=== PATIENT | female | born 1945 | race Caucasian/White ===

== ENCOUNTER → 2018-01-09 06:47 | Outpatient (CLI) | payer BC, OTHER, SELFPAY ==
[2018-01-09 07:26] LABS: AST(SGOT) 22 U/L (15-37); Alanine Aminotransfer ALT/SGPT 33 U/L (13-56); Albumin, Serum 3.5 g/dL (3.2-5.0); Alkaline Phosphatase 231 U/L (45-117); Bilirubin, Direct 0.11 mg/dL (0.00-0.30); Cholesterol 188 mg/dL (200); Globulin 3.5 g/dL (2.2-4.2); High Density Lipoprotein 47 mg/dL; Triglycerides 138 mg/dL; Very Low Density Lipoprotein 28 mg/dL (5-40)
== END ==
PROVIDERS: Family Provider Family Medicine; PCP Family Medicine; Visit Provider Physician Assistant Medical
DX: E78.5 Hyperlipidemia, unspecified (principal); Z79.899 Other long term (current) drug therapy
CPT/HCPCS: 36415; 80061; 80076

== ENCOUNTER → 2018-01-29 17:00 | Outpatient (CLI) | payer BC, OTHER, SELFPAY ==
--- NOTE | 2018-01-29 15:15 | BI_ITS ---
MAMMOGRAPHY - BILATERAL SCREENING REASON FOR EXAM: Female, 72 years old. Routine annual screening examination. PERTINENT HISTORY: PERSONAL HX @ AGE 71 WITH RT LUMPECTOMY 01/2017 WITH CHEMO AND RADIATION - CENTER LINE MOLE MARKED TECHNIQUE: Digital bilateral breast alejandro (3D mammographic acquisition) in the CC and MLO projections. 2-D mediolateral oblique (MLO) and craniocaudad (CC) views of both breasts were obtained. CAD: Full Field Digital Mammography with Computer Added Detection was performed. COMPARISON: 02/02/2017, 01/16/2017, 02/11/2013 FINDINGS: Breast Composition: There are scattered areas of fibroglandular density. There are no dominant masses or suspicious calcifications. No other significant abnormalities are identified. BI/SCREENING MAMM (CAD), BILAT IMPRESSION: Stable bilateral screening mammogram. Yearly follow-up mammogram recommended. (A) ASSESSMENT CATEGORY: BIRADS Category 2: Benign. A letter regarding these results will be sent to the patient by the facility within 30 days. Approximately 10% of breast cancers are not detected by mammography. A normal mammogram should not delay biopsy of a clinically suspicious abnormality. [id number] Electronically Signed: Chente Parra MD at 14:27 EDT Tel , Service support ,
--- NOTE | 2018-01-29 17:00 | DT_ITS ---
This patient was seen during an EMR downtime January 28, 2018 - February 04, 2018. This patient may have a combination of paper and electronic documentation or all paper documentation. All documentation is viewable within the e-chart portion of [facility] for each patient visit.
== END ==
PROVIDERS: Family Provider Family Medicine; PCP Family Medicine; Visit Provider Internal Medicine Medical Oncology
DX: Z12.31 Encounter for screening mammogram for malignant neoplasm of breast (principal); Z85.3 Personal history of malignant neoplasm of breast
CPT/HCPCS: 77063; 77067

== ENCOUNTER → 2018-11-11 10:29 | Outpatient (CLI) | payer BC, SELFPAY ==
[2018-10-21 11:22] VITALS: BMI 25.4
--- NOTE | 2018-11-11 10:32 | ECHODONC_ITS ---
Reason For Study: CAD/ASHD Procedure This was a 2D Doppler, Color Flow transthoracic echocardiogram. Myocardial strain analysis was performed in this exam to aid in the assessment of cardiac function. The study was technically difficult. Exam performed in department. Left Ventricle Normal LV size. Left ventricular systolic function is normal. The estimated ejection fraction is 67 %. Stage 1 diastolic dysfunction. No regional wall motion abnormalities noted. Right Ventricle Normal RV size. Normal systolic function. Atria Normal left atrium. Normal right atrium. Mitral Valve Normal mitral valve. Tricuspid Valve Normal tricuspid valve. Mild tricuspid valve insufficiency. Aortic Valve Normal aortic valve. Trisinus/trileaflet aortic valve. Pulmonic Valve Normal pulmonic valve. Great Vessels Normal aortic root. The pulmonary artery is normal size. Normal inferior vena cava. Pericardium/Pleural No pericardial effusion. MMode/2D Measurements & Calculations LVIDd: 4.5 cm IVSd: 0.92 cm Ao root diam: 3.0 cm LVIDs: 2.9 cm LVPWd: 1.1 cm RVDd: 2.3 cm FS: 36.0 % LAV(MOD-bp): 42.9 ml LA A4 area: 15.4 cm2 LA dimension(2D): 3.6 cm LAV(MOD-bp) Indexed: 25.7 ml/m2 LAV(MOD-sp2): 41.6 ml LAV(MOD-sp4): 42.1 ml RA A4 area: 9.7 cm2 Doppler Measurements & Calculations MV E max artemio: 76.5 cm/sec Lat Peak E' Artemio: 3.5 cm/sec Med Peak E' Artemio: 5.4 cm/sec MV A max artemio: 109.2 cm/sec E/E' lat: 21.7 E/E' med: 14.1 MV E/A: 0.70 Ao V2 max: 125.9 cm/sec LV V1 max: 90.0 cm/sec PA V2 max: 91.1 cm/sec Ao max P.3 mmHg LV V1 max P.2 mmHg TR max artemio: 219.4 cm/sec TR max P.3 mmHg Interpretation Summary Normal LV size. Left ventricular systolic function is normal. The estimated ejection fraction is 67 %. Stage 1 diastolic dysfunction. Mild tricuspid valve insufficiency. The global longitudinal strain = -18.9 % (normal). Ordering Physician: Miguelito Mueller Referring Physician: Mariluz Mcguire Performed By: Jo Baird RDCS, RVT
== END ==
PROVIDERS: Family Provider Family Medicine; PCP Family Medicine; Referring Provider Internal Medicine Cardiovascular Disease; Visit Provider Internal Medicine Cardiovascular Disease
DX: C50.911 Malignant neoplasm of unspecified site of right female breast (principal); I10 Essential (primary) hypertension; Z95.5 Presence of coronary angioplasty implant and graft; I25.10 Atherosclerotic heart disease of native coronary artery without angina pectoris
CPT/HCPCS: 0399T; 93306

== ENCOUNTER → 2019-01-31 07:36 | Outpatient (CLI) | payer BC, SELFPAY ==
[2018-10-21 11:22] VITALS: BMI 25.4
--- NOTE | 2019-01-31 07:00 | BI_ITS ---
MAMMOGRAPHY - BILATERAL SCREENING REASON FOR EXAM: Female, 73 years old. Routine annual screening examination. PERTINENT HISTORY: Personal history of breast cancer. Prior right lumpectomy with chemotherapy and radiation therapy. TECHNIQUE: Digital bilateral breast venkatesh (3D mammographic acquisition) in the CC and MLO projections. 2-D mediolateral oblique (MLO) and craniocaudad (CC) views of both breasts were obtained. CAD: Full Field Digital Mammography with Computer Added Detection was performed. COMPARISON: Comparison is made with prior examination dated January 29, 2018 and February 02, 2007. FINDINGS: Breast Composition: There are scattered areas of fibroglandular density. There are no dominant masses or suspicious calcifications. Once again, surgical clips are seen in the axillary region of the right breast. Stable postoperative scarring in the axillary region. No other significant abnormalities are identified. There has been no significant change since the prior study. BI/SCREEN MAMM (CAD) W/VENKATESH BILAT IMPRESSION: Stable bilateral screening mammogram. Yearly follow-up mammogram recommended. (A) ASSESSMENT CATEGORY: BIRADS Category 2: Benign. A letter regarding these results will be sent to the patient by the facility within 30 days. Approximately 10% of breast cancers are not detected by mammography. A normal mammogram should not delay biopsy of a clinically suspicious abnormality. [id number] Electronically Signed: Sj Ramachandran, at 8:34 EDT , Service support ,
== END ==
PROVIDERS: Family Provider Family Medicine; PCP Family Medicine; Referring Provider Internal Medicine Medical Oncology; Visit Provider Internal Medicine Medical Oncology
DX: C50.911 Malignant neoplasm of unspecified site of right female breast (principal); Z85.3 Personal history of malignant neoplasm of breast
CPT/HCPCS: 77063; 77067

== ENCOUNTER → 2019-03-28 15:25 | Outpatient (CLI) | payer BC, SELFPAY ==
[2018-10-21 11:22] VITALS: BMI 25.4
[2019-03-28 17:35] LABS: Anion Gap 7 (5-15); BUN 19 mg/dL (7-18); BUN/Creat Ratio 18.1 RATIO (10-20); Calcium,Total 8.7 mg/dL (8.5-10.1); Chloride 107 mmol/L (98-107); Creatinine, Serum 1.05 mg/dL (0.55-1.02); EST Glomerular Filtration Rate 55 mL/min (>60); Est Glom Filt Rate - Afr Amer 66 mL/min (>60); Glucose 93 mg/dL (74-106); Potassium 3.9 mmol/L (3.5-5.1); Sodium Level 140 mmol/L (136-145)
[2019-03-29 14:30] LABS: Hepatitis C Antibody Non-Reactive (Nonreactive); Vitamin D,25 Hydroxy 19.8 ng/mL (29.95-100.01)
== END ==
PROVIDERS: Family Provider Family Medicine; PCP Family Medicine; Referring Provider Family Medicine; Visit Provider Family Medicine
DX: Z00.00 Encounter for general adult medical examination without abnormal findings (principal); E55.9 Vitamin D deficiency, unspecified; I10 Essential (primary) hypertension
CPT/HCPCS: 36415; 80048; 82306; 86803

== ENCOUNTER → 2019-04-10 15:46 | Outpatient (CLI) | payer BC, SELFPAY ==
[2018-10-21 11:22] VITALS: BMI 25.4
--- NOTE | 2019-04-10 15:49 | BD_ITS ---
STUDY: DUAL ENERGY X-RAY ABSORPTIOMETRY / DXA REASON FOR EXAM: Female, 73 years old. The patient is postmenopausal. Loss of height. TECHNIQUE: Bone Mineral Density (BMD) measurements of lumbar spine and bilateral hips were obtained. COMPARISON: Comparison is made with prior examination dated February 11, 2013. FINDINGS: Lumbar Spine (L1-L4): g/cm2 (0.991) / T-score (-1.5) / Z-score (0.2) Findings are suggestive of osteopenia with a moderate fracture risk. Left Femur Total: g/cm2 (0.913) / T-score (-0.7) / Z-score (0.9) Left Femoral Neck: g/cm2 (0.765) / T-score (-2.0) / Z-score (-0.1) Right Femur Total: g/cm2 (0.881) / T-score (-1.0) / Z-score (0.7) Right Femoral Neck: g/cm2 (0.765) / T-score (-2.0) / Z-score (-0.1) The T-Scores on the most recent prior examination were: Lumbar Spine (L1-L4): There has been worsening of bone density since the previous examination. Left Femur Total: which represents a worsening of 8.1%. Right Femur Total: which represents a worsening of 5.9%. BD/Dexa Bone Density Study IMPRESSION: The patient is considered osteopenic as outlined below according to World Bill Organization (WHO) criteria with a moderate fracture risk. There has been worsening of bone density since the previous examination. Reference Information: The T-score is the number of standard deviations above or below the standard which is normal for young adults at their peak bone mineral density. The World Health Organization (WHO) interprets the T-scores as follows: Above -1 Normal bone density Between -1 and -2.5 Osteopenia Equal to / or below -2.5 Osteoporosis As a practical clinical guideline, osteopenia may be graded as follows: Mild -1 through -1.5 Moderate -1.6 through -2.0 Severe -2.1 through -2.4 The Z-score is the number of standard deviations above or below age-matched controls. A Z-score of less than -1.5 would be considered abnormal. References: 1. NIH Osteoporosis and Related Bone Diseases http://www.osteo.org 2. International Society for Clinical Densitometry http://www.iscd.org 3. National Osteoporosis Foundation http://www.nof.org Electronically Signed: Sj Ramachandran, at 10:20 EDT , Service support ,
== END ==
PROVIDERS: Family Provider Family Medicine; PCP Family Medicine; Referring Provider Family Medicine; Visit Provider Family Medicine
DX: N95.9 Unspecified menopausal and perimenopausal disorder (principal)
CPT/HCPCS: 77080

== ENCOUNTER → 2019-07-01 08:18 | Outpatient (CLI) | payer BC, SELFPAY ==
[2018-10-21 11:22] VITALS: BMI 25.4
[2019-04-17 15:17] VITALS: BMI 25.8
[2019-07-01 08:37] VITALS: PULSE 101; PULSE 106; PULSE 107; PULSE 108; PULSE 94; PULSE 95; PULSE 99; O2SAT 94; O2SAT 95; O2SAT 96; O2SAT 97; O2SAT 98
--- NOTE | 2019-07-02 08:45 | PCM.PSN.6M ---
PSN 6 Minute Walk Test - 6 Minute Walk Test 6 Minute Walk Test: 6 Minute Walk Test PSN:6-Minute Walk Test Start: 07/01/19 08:37 Freq: Status: Active Protocol: RESP.6MINW Document 07/01/19 08:37 MITUL (Rec: 07/01/19 08:39 MITUL [id number]) 6 Minute Walk Test Date Performed 07/01/19 Time Performed 08:30 Height 5 ft 1 in Weight: 152 lb Weight in Pounds 152.[address]: Rangel Gates Pre-test Oxygen Delivery Method Room Air Pulse Ox (%) 97 Pulse Rate (60-100 beats/min) 95 Dyspnea Ashley Scale (0-10) 0 Exertion Ashley Scale (6-20) 6 1st minute Oxygen Delivery Method Room Air Pulse Ox (%) 94 Pulse Rate (60-100 beats/min) 94 2nd minute Oxygen Delivery Method Room Air Pulse Ox (%) 94 Pulse Rate (60-100 beats/min) 101 H 3rd minute Oxygen Delivery Method Room Air Pulse Ox (%) 95 Pulse Rate (60-100 beats/min) 106 H 4th minute Oxygen Delivery Method Room Air Pulse Ox (%) 96 Pulse Rate (60-100 beats/min) 107 H 5th minute Oxygen Delivery Method Room Air Pulse Ox (%) 98 Pulse Rate (60-100 beats/min) 108 H 6th minute Oxygen Delivery Method Room Air Pulse Ox (%) 96 Pulse Rate (60-100 beats/min) 107 H Dyspnea Ashley Scale (0-10) 0 Exertion Ashley Scale (6-20) 11 Post-test Oxygen Delivery Method Room Air Pulse Ox (%) 98 Pulse Rate (60-100 beats/min) 99 Full Laps Walked 21 Partial Lap, Number of Tiles Walked 44 Total Distance Walked (ft) 1283 - Interpretation Interpretation: The patient ambulated 1283 feet over the course of 6 minutes beginning on room air without assistive devices or breaks. Pretesting oxygen saturation was noted to be 97% on room air. With ambulation, the ruthie oxygen saturation was 94%. There was no significant exertional oxygen desaturation. - Recommendations Recommendations: There is no indication for the use of supplemental oxygen at this time.
== END ==
PROVIDERS: Family Provider Family Medicine; PCP Family Medicine; Referring Provider Nurse Practitioner Acute Care; Visit Provider Nurse Practitioner Acute Care
DX: J44.9 Chronic obstructive pulmonary disease, unspecified (principal)
CPT/HCPCS: 94618

== ENCOUNTER → 2019-07-03 06:49 | Outpatient (CLI) | payer BC, SELFPAY ==
[2018-10-21 11:22] VITALS: BMI 25.4
[2019-04-17 15:17] VITALS: BMI 25.8
--- NOTE | 2019-07-03 13:23 | PFT ---
INTRODUCTION: The patient is a 73-year-old female that presents for pulmonary function studies secondary to a diagnosis of COPD. Respiratory therapy reports good patient effort. Bronchodilators were used during testing. INTERPRETATION: Forced expiration spirometry demonstrates the presence of a moderate large airways obstructive ventilatory defect. There was no significant response to aerosolized bronchodilators, based upon strict ATS criteria. Spirograms are of good quality and plateau gradually. Body plethysmography was performed and reveals lung volumes to be within normal limits. Diffusing capacity by single breath CO is within normal limits as well. IMPRESSION: Irreversible moderate large airways obstructive ventilatory defect with preserved lung volumes and diffusing capacity.
== END ==
PROVIDERS: Family Provider Family Medicine; PCP Family Medicine; Referring Provider Nurse Practitioner Acute Care; Visit Provider Nurse Practitioner Acute Care
DX: J44.9 Chronic obstructive pulmonary disease, unspecified (principal)
CPT/HCPCS: 94060; 94726; 94729

== ENCOUNTER → 2020-02-03 14:02 | Outpatient (CLI) | payer BC, SELFPAY ==
[2019-10-16 13:44] VITALS: BMI 26.5
[2019-10-16 14:55] VITALS: BMI 26.7
--- NOTE | 2020-02-03 14:14 | BI_ITS ---
MAMMOGRAPHY - BILATERAL SCREENING REASON FOR EXAM: Female, 74 years old. Routine annual screening examination. PERTINENT HISTORY: Personal history of breast cancer. Prior right lumpectomy with chemotherapy and radiation therapy. TECHNIQUE: Digital bilateral breast venkatesh (3D mammographic acquisition) in the CC and MLO projections. 2-D mediolateral oblique (MLO) and craniocaudad (CC) views of both breasts were obtained. CAD: Full Field Digital Mammography with Computer Added Detection was performed. COMPARISON: Comparison is made with prior examination dated January 31, 2019 and January 29, 2018. FINDINGS: Breast Composition: There are scattered areas of fibroglandular density. There are no dominant masses or suspicious calcifications. Surgical clips are once again seen in the deep axillary region of the right breast and compared with prior excisional breast biopsy. No other significant abnormalities are identified. There has been no significant change since the prior study. BI/SCREEN MAMM (CAD) W/VENKATESH BILAT IMPRESSION: Stable bilateral screening mammogram. Yearly follow-up mammogram recommended. (A) ASSESSMENT CATEGORY: BIRADS Category 2: Benign. A letter regarding these results will be sent to the patient by the facility within 30 days. Approximately 10% of breast cancers are not detected by mammography. A normal mammogram should not delay biopsy of a clinically suspicious abnormality. [id number] Electronically Signed: Sj Ramachandran, at 15:14 EDT , Service support ,
== END ==
PROVIDERS: PCP Family Medicine; Referring Provider Internal Medicine Medical Oncology; Visit Provider Internal Medicine Medical Oncology
DX: Z12.31 Encounter for screening mammogram for malignant neoplasm of breast (principal); Z85.3 Personal history of malignant neoplasm of breast
CPT/HCPCS: 77063; 77067

== ENCOUNTER → 2021-02-11 07:41 | Outpatient (CLI) | payer MEDICARE, OTHER, SELFPAY ==
[2020-10-14 14:11] VITALS: BMI 26.6
--- NOTE | 2021-02-11 07:51 | BI_ITS ---
MAMMOGRAPHY - BILATERAL SCREENING REASON FOR EXAM: Female, 75 years old. Routine annual screening examination. PERTINENT HISTORY: Personal history of breast cancer. Prior prior right lumpectomy with chemotherapy and radiation therapy. TECHNIQUE: Digital bilateral breast venkatesh (3D mammographic acquisition) in the CC and MLO projections. 2-D mediolateral oblique (MLO) and craniocaudad (CC) views of both breasts were obtained. CAD: Full Field Digital Mammography with Computer Added Detection was performed. COMPARISON: Comparison is made with prior examination dated 10/05/2019 and 01/31/2019. FINDINGS: Breast Composition: There are scattered areas of fibroglandular density. There are no dominant masses or suspicious calcifications. The patient is status post lumpectomy in the upper deep lateral aspect of the right breast with resultant architectural distortion and postbiopsy scarring. Surgical clips are seen at the operative site. No other significant abnormalities are identified. There has been no significant change since the prior study. BI/SCRN MAMM (CAD)W/VENKATESH BILAT IMPRESSION: Stable bilateral screening mammogram. Yearly follow-up mammogram recommended. (A) ASSESSMENT CATEGORY: BIRADS Category 2: Benign. A letter regarding these results will be sent to the patient by the facility within 30 days. Approximately 10% of breast cancers are not detected by mammography. A normal mammogram should not delay biopsy of a clinically suspicious abnormality. [id number] Electronically Signed: Sj Ramachandran MD at 8:45 EDT , Service support ,
== END ==
PROVIDERS: PCP Family Medicine; Referring Provider Internal Medicine Medical Oncology; Visit Provider Internal Medicine Medical Oncology
DX: Z12.31 Encounter for screening mammogram for malignant neoplasm of breast (principal); Z85.3 Personal history of malignant neoplasm of breast
CPT/HCPCS: 77063; 77067

== ENCOUNTER → 2021-04-29 12:10 | Outpatient (CLI) | payer MEDICARE, OTHER, SELFPAY ==
[2021-04-29 14:59] LABS: Absolute Lymphocyte Count 2.09 X10^3/uL (0.83-4.51); Absolute Neutrophil Count 5.9 X10^3/uL (2.0-7.7); Basophil# 0.08 X10^3/uL; Basophil% 0.9 % (0-1); Eosinophil# 0.35 X10^3/uL; Eosinophils% 3.8 % (0-5); Hematocrit 37.8 % (37-47); Hemoglobin 12.2 g/dL (12.0-15.0); Lymphocyte # 2.09 X10^3/ul (0.83-4.51); Lymphocyte % 22.8 % (19-41); Mean Corp Hgb Conc 32.3 g/dL (32-36); Mean Corpuscular Hgb 27.5 pg (27.0-32.0); Mean Corpuscular Volume 85.1 fL (81-99); Mean Platelet Vol. 10.3 fl (6.2-12.0); Monocyte# 0.69 X10^3/uL; Monocyte% 7.5 % (0-10); NRBC Flagged by Analyzer 0 % (0-5); Neutrophil # 5.87 X10^3/uL (2.7-7.7); Neutrophil % 64.2 % (47-70); Platelet Count 421 K/mm3 (150-450); RBC Distribution Width CV 15.4 % (11.6-14.6); RBC Distribution Width SD 47.4 fl (35.1-43.9); Red Blood Count 4.44 M/mm3 (4.2-5.4); White Blood Count 9.2 K/mm3 (4.4-11.0)
[2021-04-29 15:08] LABS: Anion Gap 7 (5-15); BUN 23 mg/dL (7-18); BUN/Creat Ratio 20.7 RATIO (10-20); Calcium,Total 9.1 mg/dL (8.5-10.1); Chloride 104 mmol/L (98-107); Cholesterol 179 mg/dL (200); Creatinine, Serum 1.11 mg/dL (0.55-1.02); EST Glomerular Filtration Rate 51 mL/min (>60); Est Glom Filt Rate - Afr Amer 62 mL/min (>60); Glucose 88 mg/dL (74-106); High Density Lipoprotein 42 mg/dL; Potassium 3.7 mmol/L (3.5-5.1); Sodium Level 139 mmol/L (136-145); Triglycerides 121 mg/dL; Very Low Density Lipoprotein 24 mg/dL (5-40)
== END ==
PROVIDERS: PCP Family Medicine; Referring Provider Family Medicine; Visit Provider Family Medicine
DX: I25.10 Atherosclerotic heart disease of native coronary artery without angina pectoris (principal); E61.1 Iron deficiency
CPT/HCPCS: 36415; 80048; 80061; 85025

== ENCOUNTER → 2021-05-11 14:52 | Outpatient (CLI) | payer MEDICARE, OTHER, SELFPAY | PROVIDERS: PCP Family Medicine; Referring Provider Family Medicine; Visit Provider Family Medicine | DX: U07.1 COVID-19 (principal) | CPT/HCPCS: 36415; 86769 ==

== ENCOUNTER → 2022-02-14 | Outpatient (CLI) | payer MEDICARE, OTHER, SELFPAY ==
--- NOTE | 2022-02-14 10:05 | BI_ITS ---
MAMMOGRAPHY - BILATERAL SCREENING REASON FOR EXAM: Female, 76 years old. Routine annual screening examination. PERTINENT HISTORY: Personal history of breast cancer. Prior right lumpectomy with chemotherapy and radiation therapy. TECHNIQUE: Digital bilateral breast venkatesh (3D mammographic acquisition) in the CC and MLO projections. 2-D mediolateral oblique (MLO) and craniocaudad (CC) views of both breasts were obtained. CAD: Full Field Digital Mammography with Computer Added Detection was performed. COMPARISON: Mammogram from 02/11/2021, 02/03/2020, 01/31/2019, 01/29/2018. Right breast diagnostic mammogram from 01/16/2017. FINDINGS: Breast Composition: There are scattered areas of fibroglandular density. There are no dominant masses or suspicious calcifications. Stable right breast lumpectomy scar and surgical clips. No other significant abnormalities are identified. There has been no significant change since the prior study. BI/SCRN MAMM (CAD)W/VENKATESH BILAT IMPRESSION: Stable bilateral screening mammogram. Yearly follow-up mammogram recommended. (A) ASSESSMENT CATEGORY: BIRADS Category 2: Benign. A letter regarding these results will be sent to the patient by the facility within 30 days. Approximately 10% of breast cancers are not detected by mammography. A normal mammogram should not delay biopsy of a clinically suspicious abnormality. [id number] Electronically Signed: Dom Govea, at 15:00 EDT ,
== END | disposition home or self-care (01) ==
LOC: OPBI 10:03
PROVIDERS: PCP Family Medicine; Referring Provider Internal Medicine Medical Oncology; Visit Provider Internal Medicine Medical Oncology
DX: Z12.31 Encounter for screening mammogram for malignant neoplasm of breast (principal); Z85.3 Personal history of malignant neoplasm of breast
CPT/HCPCS: 77063; 77067

== ENCOUNTER → 2022-04-04 | Outpatient (CLI) | payer MEDICARE, OTHER, SELFPAY ==
--- NOTE | 2022-04-04 10:39 | STE_ITS ---
Reason For Study: chest pain and dyspnea Stress Results Protocol: Stress Echocardiogram-Rangel Protocol Maximum Predicted HR: 144 bpm Target HR: 122 bpm % Maximum Predicted HR: 104 % Heart Stage Duration Rate BP Comment (mm:ss) (bpm) Baseline 90 124/78Patient denies any chest pain Stage 1 3:00 127 146/68Patient denies chest pain Patient complains of shortness of breath and fatigue. She denies Stage 2 2:00 150 / chest pain. Recovery 98 118/58Pt denies chest pain Stress Duration: 5:00 mm:ss Maximum Stress HR: 150 bpm Baseline Echocardiogram Findings Stress Echo Wall motion Data Resting WM Intermediate WM Stress WM ECHO/Stress Test Echo w/o Contrast Interpretation Summary Exercise stress echocardiogram. 76-year-old lady with a history of coronary artery disease. Stress protocol: Resting EKG demonstrates normal sinus rhythm with a rate of 90 bpm resting bloo d pressure is 124/78 mmHg. The patient exercised according to the regular Rangel protocol for a total duration of 5 minutes. Patient completed 2 minutes into stage II of the Rangel protocol. The m aximum heart rate attained was 164 bpm which was 113% of max impacted heart rate the maximum work load was 7 metabolic equivalents. At rest there were no ST or T wave changes noted suggest ischemia and at peak exercise upsloping ST changes were noted. No clinical angina was noted the test was term inated due to the target heart rate being achieved. There was a good blood pressure response to e xercise the peak blood pressure is 146/68 mmHg. Stress echocardiogram. The resting echocardiogram demonstrates preserved left ventricular systolic fun ction estimated ejection fraction of 55%. No wall motion abnormalities are noted. Mitral calcif ication is present. At peak exercise there was thickening of all tapia and reduction of left ventri cular cavity size with peaking of ejection fraction at 65 to 70%. Conclusion: Exercise stress echo with no wall motion abnormalities noted suggestive of isch emia at a high workload. Good functional capacity. No EKG changes of ischemia. Ordering Physician: Stella Osuna Referring Physician: Stella Osuna Performed By: Marcos Andersen RCS
== END | disposition home or self-care (01) ==
LOC: CVS 10:38
PROVIDERS: PCP Family Medicine; Referring Provider Physician Assistant Medical; Visit Provider Physician Assistant Medical
DX: R07.9 Chest pain, unspecified (principal); I25.119 Atherosclerotic heart disease of native coronary artery with unspecified angina pectoris
CPT/HCPCS: 93017; 93350

== ENCOUNTER 2022-04-14 22:41 | Observation (INO) | payer MEDICARE, OTHER, SELFPAY ==
--- NOTE | 2022-04-14 00:10 | RAD_ITS ---
EXAM: XR CHEST, 1 VIEW CLINICAL INDICATION: chest pain TECHNIQUE: Frontal view of the chest. This report was created using [email or web address] report generation technology. COMPARISON: 02/02/2017. FINDINGS: LUNGS AND PLEURAL SPACES: Unremarkable. No consolidation or edema. No pneumothorax. No effusion. HEART: Unremarkable. Cardiac silhouette not enlarged. MEDIASTINUM: Central airways and mediastinal contour are unremarkable. BONES/JOINTS: Unremarkable. SOFT TISSUES: Unremarkable. RAD/Chest 1 View (Portable) IMPRESSION: No radiographic evidence of acute cardiopulmonary disease. Electronically Signed: Mk Grewal MD at 0:57 EDT ,
[2022-04-14 22:42] VITALS: BP 184/86; PULSE 102; RESP 22; TEMP 36.6; O2SAT 98; BMI 28.8
--- NOTE | 2022-04-14 23:52 | EKG12_ITS ---
Test Reason : CP Blood Pressure : / mmHG Vent. Rate : 098 BPM Atrial Rate : 098 BPM P-R Int : 142 ms QRS Dur : 092 ms QT Int : 354 ms P-R-T Axes : 065 -27 045 degrees QTc Int : 451 ms Normal sinus rhythm Leftward axis Incomplete right bundle branch block Nonspecific ST abnormality Abnormal ECG Confirmed by CHAIM SNELL, RADHA ([id number]), magazine editor RAEANN ABREU ([id number]) on 04/18/2022 12:59:09 PM Referred By: MERVIN Confirmed By:ARDHA RUCKER MD
[2022-04-15] VITALS (18 sets, daily range): BP systolic 116–164; BP diastolic 52–80; PULSE 73–100; RESP 11–24; TEMP 36.2–37.2; O2SAT 92–97; BMI 28.8
[2022-04-15 00:09] LABS: Absolute Lymphocyte Count 2.86 X10^3/uL (0.83-4.51); Absolute Neutrophil Count 6.1 X10^3/uL (2.0-7.7); Basophil# 0.08 X10^3/uL; Basophil% 0.8 % (0-1); Eosinophil# 0.56 X10^3/uL; Eosinophils% 5.4 % (0-5); Hematocrit 35.7 % (37-47); Hemoglobin 11.5 g/dL (12.0-15.0); Lymphocyte # 2.86 X10^3/ul (0.83-4.51); Lymphocyte % 27.5 % (19-41); Mean Corp Hgb Conc 32.2 g/dL (32-36); Mean Corpuscular Volume 80.8 fL (81-99); Mean Platelet Vol. 10.7 fl (6.2-12.0); Monocyte# 0.81 X10^3/uL; Monocyte% 7.8 % (0-10); NRBC Flagged by Analyzer 0 % (0-5); Neutrophil # 6.05 X10^3/uL (2.7-7.7); Platelet Count 425 K/mm3 (150-450); RBC Distribution Width CV 15.7 % (11.6-14.6); RBC Distribution Width SD 45.6 fl (35.1-43.9); Red Blood Count 4.42 M/mm3 (4.2-5.4); White Blood Count 10.4 K/mm3 (4.4-11.0)
[2022-04-15 00:29] LABS: Anion Gap 7 (5-15); BUN 21 mg/dL (7-18); BUN/Creat Ratio 20.8 RATIO (10-20); Calcium,Total 9.3 mg/dL (8.5-10.1); Chloride 106 mmol/L (98-107); Creatinine, Serum 1.01 mg/dL (0.55-1.02); EST Glomerular Filtration Rate 57 mL/min (>60); Est Glom Filt Rate - Afr Amer 68 mL/min (>60); Estimated Creatinine Clearance 37.48 ml/min; Glucose 147 mg/dL (74-106); Sodium Level 139 mmol/L (136-145); Troponin-I HS (w/2H Reflex) 11 pg/mL (3.0-54.0)
--- NOTE | 2022-04-15 01:07 | EX.ED.DYSGE1 ---
HPI History of Present Illness Chief Complaint: Palpitations Narrative Narrative: 76-year-old female presenting with chief complaint of palpitations. She states has had these intermittently. She complains of lightheadedness with these sometimes. She states that she is wearing a monitor currently that she received from Dr. Mueller's office. She received a call from the monitoring service and stated she needed to come to the ER. They would not tell her what the reason was. She states she feels well other than some intermittent lightheadedness and palpitations. She did experience this tonight. She is not having chest pain or shortness of breath. 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) Osteoarthritis Seasonal allergies Stage 1 mild COPD by GOLD classification Home Medications aspirin 81 mg chewable tablet 81 mg PO DAILY@0800 07/11/14 [History Last Taken 07/10/14 20:00] multivitamin with folic acid 400 mcg tablet 1 tab PO DAILY 07/11/14 [History Last Taken 07/10/14 08:00] pyridoxine (vitamin B6) 100 mg tablet 100 mg PO ONCE 09/20/17 [History Last Taken Unknown] budesonide-formoterol HFA 160 mcg-4.5 mcg/actuation aerosol inhaler 6 g IH DAILY 04/15/20 [History Last Taken Unknown] hydrochlorothiazide 25 mg tablet 25 mg PO DAILY #90 tabs 03/07/22 [Rx Last Taken Unknown] losartan 100 mg tablet 100 mg PO DAILY #90 tabs 03/07/22 [Rx Last Taken Unknown] metoprolol tartrate 25 mg tablet 25 mg PO BID #180 tabs 03/07/22 [Rx Last Taken Unknown] Allergy/AdvReac Type Severity Reaction Status Date / Time lovastatin AdvReac Severe MYALGIAS Verified 03/21/22 08:25 mold AdvReac Severe WHEEZING Verified 03/21/22 08:25 atorvastatin [From Lipitor] AdvReac Intermediate MYALGIAS Verified 03/21/22 08:25 lisinopril AdvReac Intermediate DRY COUGH Verified 03/21/22 08:25 prednisone AdvReac Unknown Other Verified 03/21/22 08:25 Family History Mother Hypertension Surgical History H/O: section History of bilateral cataract extraction History of coronary artery stent placement History of lumpectomy Port catheter in place Social History Smoking Status: Former smoker Tobacco: How many years used: 34 how long ago did patient quit smokin, 0.5p/day second hand exposure: Yes alcohol intake: never substance use type: does not use ROS ROS ED Constitutional Constitutional ED: Denies chills or fever(s) Eyes Eyes: Denies change in vision or diplopia ENT ENT ED: Denies rhinorrhea or sore throat Cardiovascular Cardiovascular: Reports palpitations and racing heartbeat; Denies chest pain Respiratory/Chest Respiratory/Chest: Denies cough, dyspnea or dyspnea on exertion Gastrointestinal Gastrointestinal: Denies abdominal pain or constipation Genitourinary Genitourinary ED: Denies dysuria or hematuria Musculoskeletal Musculoskeletal: Denies arthralgias or back pain Integumentary Denies abscess or Abrasions Neurologic Neurologic: Denies headache(s) or paresthesias Psychiatric Psychiatric: Denies anxiety or depression EXAM Physical Exam Const Vital Signs: 04/14/22 22:42 04/14/22 22:46 04/15/22 00:04 Temperature 97.8 F Temperature Source Oral Pulse Rate 102 H Respiratory Rate 22 H Respiratory Effort Normal Blood Pressure 184/86 H Blood Pressure Mean 118 Pulse Ox 98 Oxygen Delivery Method Room Air Room Air 04/15/22 00:43 04/15/22 01:46 04/15/22 02:00 Temperature Temperature Source Pulse Rate 73 82 83 Respiratory Rate 19 H 24 H 15 Respiratory Effort Blood Pressure 145/70 H 148/69 H 160/71 H Blood Pressure Mean 95 95 100 Pulse Ox 97 94 97 Oxygen Delivery Method Room Air Room Air Room Air Positive well nourished General Appearance ED: NAD HEENT Reports moist mucous membranes Eyes PERRL and EOMs intact bilaterally Neck no lymphadenopathy Chest Wall inspection of chest normal Resp normal respiratory effort and clear to auscultation bilaterally Auscultation: Negative for rales, rhonchi or wheezes Cardio regular rate and regular rhythm GI normal to inspection, nondistended, normoactive bowel sounds Back/Spine no CVA tenderness Extremity normal to inspection MDM MDM MDM Narrative Medical decision making narrative: Patient presented with intermittent lightheadedness and palpitations. She is wearing a monitor for this. She was referred to the emergency room because she had a 6-second run of V. tach. Patient CBC, BMP unremarkable with exception of a potassium of 3.0. Magnesium normal at 2.5. High-sensitivity troponin is 11. EKG is normal sinus rhythm at a ventricular rate of 98 bpm without sign of ischemic change. Chest x-ray on my interpretation shows no acute cardiopulmonary process and the radiologist agree. I discussed the case with cardiology who recommended admission for monitoring. Case was discussed with the hospitalist and admitted in stable condition. Impression: 1. Palpitations 2. Lightheadedness 2. V. tach Lab Data Attestation: I reviewed the patient's lab results. Labs: Laboratory Results - last 24 hr 04/14/22 04/14/22 04/14/22 23:05 23:05 23:05 WBC 10.4 RBC 4.42 Hgb 11.5 L Hct 35.7 L MCV 80.8 L MCH 26.0 L MCHC 32.2 RDW Std Deviation 45.6 H RDW Coeff of Elizabeth 15.7 H Plt Count 425 MPV 10.7 Immature Gran % (Auto) 0.500 Neut % (Auto) 58.0 Lymph % (Auto) 27.5 Angelina % (Auto) 7.8 Eos % (Auto) 5.4 H Baso % (Auto) 0.8 Absolute Neuts (auto) 6.1 Absolute Lymphs (auto) 2.86 Nucleated RBC % 0 Sodium 139 Potassium 3.0 L Chloride 106 Carbon Dioxide 26.0 Anion Gap 7 BUN 21 H Creatinine 1.01 Estim Creat Clear Calc 37.48 Est GFR (MDRD) Af Amer 68 Est GFR (MDRD) Non-Af 57 L BUN/Creatinine Ratio 20.8 H Glucose 147 H Calcium 9.3 Magnesium 2.5 Troponin I High Sens 11 04/15/22 02:30 WBC RBC Hgb Hct MCV MCH MCHC RDW Std Deviation RDW Coeff of [place] Plt Count MPV Immature Gran % (Auto) Neut % (Auto) Lymph % (Auto) Angelina % (Auto) Eos % (Auto) Baso % (Auto) Absolute Neuts (auto) Absolute Lymphs (auto) Nucleated RBC % Sodium Potassium Chloride Carbon Dioxide Anion Gap BUN Creatinine Estim Creat Clear Calc Est GFR (MDRD) Af Amer Est GFR (MDRD) Non-Af BUN/Creatinine Ratio Glucose Calcium Magnesium Troponin I High Sens 14 Radiography Diagnostic Testing: Clinical Impression(s) from Imaging Studies Chest X-Ray 04/14/22 00:10 IMPRESSION: No radiographic evidence of acute cardiopulmonary disease. Electronically Signed: Mk Grewal MD at 0:57 EDT , Discharge Plan Triage Chief Complaint: Palpitations Other Complaint: Shortness of Breath ED Provider: Faheem Lizarraga Dx/Rx/DC Orders Prescriptions: No Action pyridoxine (vitamin B6) 100 mg tablet 100 mg PO ONCE aspirin 81 MG tablet,chewable 81 mg PO DAILY@0800 multivitamin with folic acid 1 TABLET tablet 1 tab PO DAILY budesonide-formoterol 6 GM HFA aerosol inhaler 6 g IH DAILY hydrochlorothiazide 25 mg tablet 25 mg PO DAILY Qty: 90 4RF losartan 100 mg tablet 100 mg PO DAILY Qty: 90 3RF metoprolol tartrate 25 mg tablet 25 mg PO BID Qty: 180 3RF Primary Care Provider: Mariluz Mcguire Referrals: Mariluz Mcguire MD [Primary Care Provider] -
[2022-04-15 01:25] LABS: Magnesium 2.5 mg/dL (1.6-2.6)
[2022-04-15] MEDS: Potassium Chloride Oral Soln 20 MEQ/15 ML UDC 40 MEQ PO ×3 (01:44→16:47)
[2022-04-15 02:06] LABS: Reflex Troponin-HS? (from REC) Y
--- NOTE | 2022-04-15 02:09 | HP.PCM.HOS_ITS ---
[facility] - General General Date of Admission: 04/15/22 Date of Service: 04/15/22 Chief Complaint: abnormal heart rhythm HPI Narrative THAO FRIEND, is a 76 F with a significant history of former tobacco abuse and hypertension who presents emergency department with abnormal rhythm. Patient has a 30-day event monitor secondary to symptoms of lightheadedness; shortness of breath and palpitations. On the day of presentation patient was called by the monitoring company and asked to push the button on the event monitor and record his symptoms. Reportedly the monitor company called her about 3 times. At the monitoring company and then called patient medical insurance collector because patient reportedly had six seconds V. tach. Patient was instructed to come to the emergency department by medical insurance collector. Patient reports symptoms of shortness of breath and lightheadedness. She has had some palpitations but not on the day of presentation [facility] Medical History Allergic rhinitis Anemia Asthma Atherosclerotic heart disease of [place] coronary artery without angina pectoris Basal cell carcinoma of skin of forearm Breast mass, right Carotid bruit Chemotherapy management, encounter for Colon polyp Ductal carcinoma of right breast Encounter for long-term (current) use of high-risk medication Esophageal reflux Essential (primary) hypertension History of right breast cancer History of ST elevation myocardial infarction (STEMI) (08/07/08) Hyperlipidemia Nicotine abuse 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) Osteoarthritis Seasonal allergies Stage 1 mild COPD by GOLD classification Home Medications aspirin 81 mg chewable tablet 81 mg PO DAILY@0800 07/11/14 [History Last Taken 1 09/09/13 20:00] multivitamin with folic acid 400 mcg tablet 1 tab PO DAILY 07/11/14 [History Last Taken 07/10/14 08:00] pyridoxine (vitamin B6) 100 mg tablet 100 mg PO ONCE 09/20/17 [History Last Taken Unknown] budesonide-formoterol HFA 160 mcg-4.5 mcg/actuation aerosol inhaler 6 g IH DAILY 04/15/20 [History Last Taken Unknown] hydrochlorothiazide 25 mg tablet 25 mg PO DAILY #90 tabs 03/07/22 [Rx Last Taken Unknown] losartan 100 mg tablet 100 mg PO DAILY #90 tabs 03/07/22 [Rx Last Taken Unknown] metoprolol tartrate 25 mg tablet 25 mg PO BID #180 tabs 03/07/22 [Rx Last Taken Unknown] Allergy/AdvReac Type Severity Reaction Status Date / Time lovastatin AdvReac Severe MYALGIAS Verified 03/21/22 08:25 mold AdvReac Severe WHEEZING Verified 03/21/22 08:25 atorvastatin [From Lipitor] AdvReac Intermediate MYALGIAS Verified 03/21/22 08:25 lisinopril AdvReac Intermediate DRY COUGH Verified 03/21/22 08:25 prednisone AdvReac Unknown Other Verified 03/21/22 08:25 Family History Mother Hypertension Surgical History H/O: section History of bilateral cataract extraction History of coronary artery stent placement History of lumpectomy Port catheter in place Social History Smoking Status: Former smoker Tobacco: How many years used: 34 how long ago did patient quit smokin, 0.5p/day second hand exposure: Yes alcohol intake: never substance use type: does not use ROS ROS Narrative Pertinent positives and pertinent negatives as noted in HPI. All other systems were reviewed and are negative Vital Signs Vital Signs Vital Signs: 04/14/22 22:42 04/14/22 22:46 04/15/22 00:04 Temperature 97.8 F Temperature Source Oral Pulse Rate 102 H Respiratory Rate 22 H Respiratory Effort Normal Blood Pressure 184/86 H Blood Pressure Mean 118 Pulse Ox 98 Oxygen Delivery Method Room Air Room Air 04/15/22 00:43 04/15/22 01:46 04/15/22 02:00 Temperature Temperature Source Pulse Rate 73 82 83 Respiratory Rate 19 H 24 H 15 Respiratory Effort Blood Pressure 145/70 H 148/69 H 160/71 H Blood Pressure Mean 95 95 100 Pulse Ox 97 94 97 Oxygen Delivery Method Room Air Room Air Room Air Weight Weight: 71.6 kg Body Mass Index (BMI) 28.8 Physical Exam Narrative Physical exam: General: Well-nourished, well-developed. Head: Normocephalic, atraumatic, no tenderness Eyes: Vision is grossly intact. EOMI ENT, no trauma, moist mucous membranes, no rhinorrhea Neck: Nontender, full range of motion, no spinal tenderness, deformities, step- off CVS: Regular rate and rhythm. S1-S2 present. No murmur, gallop or rub. Respiratory : clear to auscultation bilaterally, chest wall nontender, no wheezing Abdomen: Soft, nontender, nondistended, normal bowel sounds, no masses : Deferred Back: Nontender, no CVA tenderness, no midline spinal tenderness, deformities, step-offs Extremities: Nontender full range of motion, no trauma Skin: Normal color, no trauma, abrasions Neuro: Alert, oriented, cranial nerves II through XII grossly intact. Psychiatry: Normal mood. Normal affect. Not depressed. Not anxious. Results Medical Records Data Attestation: I reviewed the patient's medical records Lab / Micro Data Attestation: I reviewed the patient's lab results. Result Diagrams: 04/14/22 23:05 04/14/22 23:05 Labs: Laboratory Results - last 24 hr 04/14/22 23:05: WBC 10.4, RBC 4.42, Hgb 11.5 L, Hct 35.7 L, MCV 80.8 L, MCH 26.0 L, MCHC 32.2, RDW Std Deviation 45.6 H, RDW Coeff of Elizabeth 15.7 H, Plt Count 425, MPV 10.7, Immature Gran % (Auto) 0.500, Neut % (Auto) 58.0, Lymph % (Auto) 27.5, [place] % (Auto) 7.8, Eos % (Auto) 5.4 H, Baso % (Auto) 0.8, Absolute Neuts (auto) 6.1, Absolute Lymphs (auto) 2.86, Nucleated RBC % 0 04/14/22 23:05: Sodium 139, Potassium 3.0 L, Chloride 106, Carbon Dioxide 26.0, Anion Gap 7, BUN 21 H, Creatinine 1.01, Estim Creat Clear Calc 37.48, Est GFR (MDRD) Af Amer 68, Est GFR (MDRD) Non-Af 57 L, BUN/Creatinine Ratio 20.8 H, Glucose 147 H, Calcium 9.3, Troponin I High Sens 11 04/14/22 23:05: Magnesium 2.5 Radiology Impression Chest X-Ray 04/14/22 00:10 IMPRESSION: No radiographic evidence of acute cardiopulmonary disease. Electronically Signed: Mk Grewal MD at 0:57 EDT , Assessment & Plan Assessment/Plan (1) Nonsustained ventricular tachycardia: (2) Essential (primary) hypertension: (3) Hypokalemia: PLAN: Plan Nonsustained VT Reportedly found on monitor. Emergency doctor discussed the case with cardiology and recommendations are to observe patient's in the hospital. Chest x-ray image was visualized and independently interpreted and I agree with radiologist interpretation of no acute cardiopulmonary process. Patient will be observed at progressive care unit. Potassium is 3.0. Received 40 milliequivalent potassium po at the ED. Emergency department. Potassium IV replacement ordered. Last TSH on file was on 08/24/2016; value 2.04. TSH ordered. Cardiology consult Hypertension Blood pressure is not within goal Home blood pressure medication continued. As needed hydralazine ordered. Trend blood pressure and adjust blood pressure medications. Anemia Mild Trend CBC DVT prophylaxis SCD ordered. Charges/Coding Visit Charges OBSV E&M: 08180 Initial observation care L3
[2022-04-15 03:02] LABS: Troponin-I HS 14 pg/mL (3.0-54.0)
[2022-04-15] MEDS: Potassium Chloride 10mEq/100mL 10 MEQ/100 ML IV.SOLN. 100 MEQ IV BOLUS (05:50)
[2022-04-15] MEDS: Albuterol 2.5 MG/3 ML VIAL.NEB. INHALATION ×3 (07:35→19:13)
[2022-04-15] MEDS: Budesonide Respules 0.5 MG/2 ML AMPUL.NEB. INHALATION ×2 (07:35→19:13)
[2022-04-15] MEDS: Aspirin 81 MG TAB.CHEW PO (09:14)
[2022-04-15] MEDS: Losartan Potassium 100 MG Tablet PO (09:15)
[2022-04-15] MEDS: Metoprolol Tartrate 25 MG Tablet PO ×2 (09:15→21:17)
[2022-04-15] MEDS: hydroCHLOROthiazide 25 MG Tablet PO (09:15)
[2022-04-15] MEDS: Pyridoxine HCl 100 MG Tablet PO (09:16)
[2022-04-15 09:34] LABS: Absolute Lymphocyte Count 2.26 X10^3/uL (0.83-4.51); Absolute Neutrophil Count 4.4 X10^3/uL (2.0-7.7); Basophil# 0.07 X10^3/uL; Basophil% 0.9 % (0-1); Eosinophil# 0.37 X10^3/uL; Eosinophils% 4.9 % (0-5); Hematocrit 36.1 % (37-47); Hemoglobin 11.9 g/dL (12.0-15.0); Lymphocyte # 2.26 X10^3/ul (0.83-4.51); Lymphocyte % 30.1 % (19-41); Mean Corpuscular Hgb 26.7 pg (27.0-32.0); Mean Corpuscular Volume 81.1 fL (81-99); Mean Platelet Vol. 10.2 fl (6.2-12.0); Monocyte# 0.42 X10^3/uL; Monocyte% 5.6 % (0-10); NRBC Flagged by Analyzer 0 % (0-5); Neutrophil # 4.37 X10^3/uL (2.7-7.7); Neutrophil % 58.1 % (47-70); Platelet Count 382 K/mm3 (150-450); RBC Distribution Width CV 15.6 % (11.6-14.6); Red Blood Count 4.45 M/mm3 (4.2-5.4); White Blood Count 7.5 K/mm3 (4.4-11.0)
[2022-04-15 10:11] LABS: Anion Gap 7 (5-15); BUN 17 mg/dL (7-18); BUN/Creat Ratio 17.3 RATIO (10-20); Calcium,Total 8.7 mg/dL (8.5-10.1); Chloride 109 mmol/L (98-107); Creatinine, Serum 0.98 mg/dL (0.55-1.02); EST Glomerular Filtration Rate 58 mL/min (>60); Est Glom Filt Rate - Afr Amer 71 mL/min (>60); Estimated Creatinine Clearance 36.85 ml/min; Glucose 143 mg/dL (74-106); Potassium 3.3 mmol/L (3.5-5.1); Sodium Level 141 mmol/L (136-145); Thyroid Stim Hormone (TSH) 2.87 uIU/mL (0.358-3.74)
--- NOTE | 2022-04-15 12:00 | ECHOD_ITS ---
Reason For Study: Arrhythmia Procedure This was a 2D Doppler, Color Flow transthoracic echocardiogram. Exam performed portable in patient room. Left Ventricle Normal left ventricle. The estimated ejection fraction is 55-60 %. Right Ventricle Normal right ventricle. Normal systolic function. Atria Normal left atrium. Normal right atrium. Mitral Valve The mitral valve is structurally normal. No prolapse or stenosis seen. Mild (1+) mitral valve insufficiency. Tricuspid Valve Normal tricuspid valve. Mild tricuspid valve insufficiency. Aortic Valve Normal aortic valve. Trivial eccentric aortic valve insufficiency. Pulmonic Valve The pulmonic valve is not well visualized. Great Vessels Normal aortic root. Pericardium/Pleural No pericardial effusion. MMode/2D Measurements & Calculations LVIDd: 3.7 cm IVSd: 1.1 cm Ao root diam: 3.2 cm LVIDs: 2.3 cm LVPWd: 1.1 cm RVDd: 3.0 cm FS: 38.3 % LAV(MOD-bp): 40.0 ml LVAd ap4: 20.5 cm2 LVAd ap2: 17.7 cm2 LAV(MOD-bp) Indexed: 23.8 ml/m2 LVLd ap4: 6.6 cm LVLd ap2: 6.5 cm LAV(MOD-sp2): 50.4 ml EDV(MOD-sp4): 53.0 ml EDV(MOD-sp2): 40.0 ml LAV(MOD-sp4): 30.8 ml EDV(sp4-el): 54.2 ml EDV(sp2-el): 41.0 ml LVAs ap4: 9.2 cm2 LVAs ap2: 10.2 cm2 LVLs ap4: 5.3 cm LVLs ap2: 5.6 cm ESV(MOD-sp4): 14.5 ml ESV(MOD-sp2): 15.8 ml ESV(sp4-el): 13.7 ml ESV(sp2-el): 15.6 ml EF(MOD-sp4): 72.6 % EF(MOD-sp2): 60.4 % EF(sp4-el): 74.8 % SV(MOD-sp4): 38.5 ml SV(MOD-sp2): 24.2 ml SV(sp4-el): 40.6 ml LA dimension(2D): 3.5 cm LA A4 area: 13.3 cm2 RA A4 area: 9.3 cm2 Doppler Measurements & Calculations MV E max artemio: 112.1 cm/sec Lat Peak E' Artemio: 8.4 cm/sec Med Peak E' Artemio: 9.9 cm/sec MV A max artemio: 122.7 cm/sec E/E' lat: 13.4 E/E' med: 11.4 MV E/A: 0.91 Ao V2 max: 162.5 cm/sec LV V1 max: 112.3 cm/sec PA V2 max: 89.7 cm/sec Ao max P.6 mmHg LV V1 max P.0 mmHg TR max artemio: 270.7 cm/sec TR max P.4 mmHg ECHO/Echo Complete Interpretation Summary The estimated ejection fraction is 55-60 %. Normal LV systolic functiom The global Longitudinal strain 20.3 nor,al Ordering Physician: Mary Kay Thomas Referring Physician: Mariluz Mcguire M.D. Performed By: Amanda Connor RDCS
--- NOTE | 2022-04-15 12:45 | CON.PCM.CA_ITS ---
Assessment & Plan Assessment/Plan (1) Hypokalemia: (2) History of ST elevation myocardial infarction (STEMI): (3) Old inferior wall myocardial infarction: (4) History of coronary artery stent placement: (5) Essential (primary) hypertension: (6) Hyperlipidemia: QUALIFIERS: Hyperlipidemia type: pure hypercholesterolemia Qualified Code(s): E78.00 - Pure hypercholesterolemia, unspecified; E78.0 - Pure hypercholesterolemia (7) History of right breast cancer: (8) Nonsustained ventricular tachycardia: PLAN: 76-year-old patient, former tobacco abuse hypertension she was brought into the ER as she has abnormal awake overnight monitor/event she had symptoms of lightheadedness shortness of breath and palpitation Also she had frequent episodes of nonsustained ventricular tachycardia. Patient known to have history of CAD with prior STEMI was sent over to [facility] in 2007 where she had PCI and stent to the RCA using bare-metal stent Subsequently patient evaluated in the office with a stress echocardiogram which showed no evidence of ischemia She does not have any active chest pain. Review of the event monitor showed frequent episode of nonsustained V. tach She had hypokalemia with a serum potassium lower around 3.0 Cardiac care plan recommendation 1. I reviewed the current medication will continue current treatment 2. With recommend to correct electrolytes potassium magnesium 3. We will continue to monitor on telemetry There is no further episode of nonsustained ventricular tachycardia Patient also to be monitored over the night and if she is stable she can be discharged home tomorrow with the plan of follow-up with the primary supervisor tumbling and rolling Dr. Mueller to discuss further plan possible cardiac catheterization due to long history of STEMI inferior with a bare-metal stent. This patient seen today and evaluated at bedside along with the nursing staff Cardiac care plan discussed with the patient as well as the nursing staff. HPI Consult Data Date of Consult: 04/15/22 HPI Narrative Reason for Consultation: Patient with CAD, prior [place] with stent/frequent episode nonsustained V. tach HPI Narrative: THAO FRIEND, is a 76 F who presents [facility] Medical History Allergic rhinitis Anemia Asthma Atherosclerotic heart disease of [place] coronary artery without angina pectoris Basal cell carcinoma of skin of forearm Breast mass, right Carotid bruit Chemotherapy management, encounter for Colon polyp Ductal carcinoma of right breast Encounter for long-term (current) use of high-risk medication Esophageal reflux Essential (primary) hypertension History of right breast cancer History of ST elevation myocardial infarction (STEMI) (08/07/08) Hyperlipidemia Nicotine abuse 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) Osteoarthritis Seasonal allergies Stage 1 mild COPD by GOLD classification Home Medications aspirin 81 mg chewable tablet 81 mg PO DAILY@0800 07/11/14 [History Last Taken 07/10/14 20:00] multivitamin with folic acid 400 mcg tablet 1 tab PO DAILY 07/11/14 [History Last Taken 07/10/14 08:00] pyridoxine (vitamin B6) 100 mg tablet 100 mg PO ONCE 09/20/17 [History Last Taken Unknown] budesonide-formoterol HFA 160 mcg-4.5 mcg/actuation aerosol inhaler 6 g IH DAILY 04/15/20 [History Last Taken Unknown] hydrochlorothiazide 25 mg tablet 25 mg PO DAILY #90 tabs 03/07/22 [Rx Last Taken Unknown] losartan 100 mg tablet 100 mg PO DAILY #90 tabs 03/07/22 [Rx Last Taken Unknown] metoprolol tartrate 25 mg tablet 25 mg PO BID #180 tabs 03/07/22 [Rx Last Taken Unknown] Allergy/AdvReac Type Severity Reaction Status Date / Time lovastatin AdvReac Severe MYALGIAS Verified 03/21/22 08:25 mold AdvReac Severe WHEEZING Verified 03/21/22 08:25 atorvastatin [From Lipitor] AdvReac Intermediate MYALGIAS Verified 03/21/22 08:25 lisinopril AdvReac Intermediate DRY COUGH Verified 03/21/22 08:25 prednisone AdvReac Unknown Other Verified 03/21/22 08:25 Family History Mother Hypertension Surgical History H/O: section History of bilateral cataract extraction History of coronary artery stent placement History of lumpectomy Port catheter in place Social History Smoking Status: Former smoker Tobacco: How many years used: 34 how long ago did patient quit smokin, 0.5p/day second hand exposure: Yes alcohol intake: never substance use type: does not use Physical Exam Narrative And evaluated bedside Review of the awake overnight monitor on telemetry showed underlying normal sinus Review of the event monitor/Inxero revealed frequent episodes of nonsustained ventricular tachycardia Patient presentation is symptoms shortness of breath with palpitation Cardiac exam S1-S2 regular Chest exam is clear to auscultation bilateral. Risk Stratification Risk Stratification Applicable: Yes Age >/= 65: Yes >/= 3 CAD Risk Factors (HTN, HLD, DM, family hx of CAD, or current smoker): Yes Aspirin Use in the Past 7 Days: Yes Severe Angina (>/= episodes in 24 hours): No EKG ST Changes >/= 0.5mm: No Positive Cardiac Marker: No VIRIDIANA Risk Stratification Score: 3 VIRIDIANA % Risk: 13% Risk Objective Data Vital Signs: Vital Signs Temp Pulse Resp BP Pulse Ox O2 Del Method 97.5 F L 87 18 139/54 H 96 Room Air 04/15/22 09:05 04/15/22 11:00 04/15/22 09:05 04/15/22 09:15 04/15/22 09:05 04/15/22 09:05 Oxygen Delivery Method Room Air Weight: 152 lb 12.485 oz Body Mass Index (BMI) 28.8 Intake & Output: Intake and Output for Last 24 Hours 04/13/22 04/14/22 04/15/22 23:59 23:59 23:59 Intake Total 260.00 / 260.00 Balance 260.00 / 260.00 Lab / Micro Data Result Diagrams: 04/15/22 09:20 04/15/22 09:20 Labs: Laboratory Results - last 24 hr 04/14/22 23:05: WBC 10.4, RBC 4.42, Hgb 11.5 L, Hct 35.7 L, MCV 80.8 L, MCH 26.0 L, MCHC 32.2, RDW Std Deviation 45.6 H, RDW Coeff of Elizabeth 15.7 H, Plt Count 425, MPV 10.7, Immature Gran % (Auto) 0.500, Neut % (Auto) 58.0, Lymph % (Auto) 27.5, [place] % (Auto) 7.8, Eos % (Auto) 5.4 H, Baso % (Auto) 0.8, Absolute Neuts (auto) 6.1, Absolute Lymphs (auto) 2.86, Nucleated RBC % 0 04/14/22 23:05: Sodium 139, Potassium 3.0 L, Chloride 106, Carbon Dioxide 26.0, Anion Gap 7, BUN 21 H, Creatinine 1.01, Estim Creat Clear Calc 37.48, Est GFR (MDRD) Af Amer 68, Est GFR (MDRD) Non-Af 57 L, BUN/Creatinine Ratio 20.8 H, Glucose 147 H, Calcium 9.3, Troponin I High Sens 11 04/14/22 23:05: Magnesium 2.5 04/15/22 02:30: Troponin I High Sens 14 04/15/22 09:20: Sodium 141, Potassium 3.3 L, Chloride 109 H, Carbon Dioxide 25.0, Anion Gap 7, BUN 17, Creatinine 0.98, Estim Creat Clear Calc 36.85, Est GFR (MDRD) Af Amer 71, Est GFR (MDRD) Non-Af 58 L, BUN/Creatinine Ratio 17.3, Glucose 143 H, Calcium 8.7, TSH 2.87 04/15/22 09:20: WBC 7.5, RBC 4.45, Hgb 11.9 L, Hct 36.1 L, MCV 81.1, MCH 26.7 L, MCHC 33.0, RDW Std Deviation 46.0 H, RDW Coeff of [place] 15.6 H, Plt Count 382, MPV 10.2, Immature Gran % (Auto) 0.400, Neut % (Auto) 58.1, Lymph % (Auto) 30.1, [place] % (Auto) 5.6, Eos % (Auto) 4.9, Baso % (Auto) 0.9, Absolute Neuts (auto) 4.4, Absolute Lymphs (auto) 2.26, Nucleated RBC % 0 Cardiology Labs/Tests 04/14/22 23:05: WBC 10.4, RBC 4.42, Hgb 11.5 L, Hct 35.7 L, MCV 80.8 L, MCH 26.0 L, MCHC 32.2, Plt Count 425, MPV 10.7, Immature Gran % (Auto) 0.500, Neut % (Auto) 58.0, Lymph % (Auto) 27.5, [place] % (Auto) 7.8, Eos % (Auto) 5.4 H, Baso % (Auto) 0.8, Absolute Neuts (auto) 6.1, Nucleated RBC % 0 04/14/22 23:05: Sodium 139, Potassium 3.0 L, Chloride 106, Carbon Dioxide 26.0, Anion Gap 7, BUN 21 H, Creatinine 1.01, Est GFR (MDRD) Af Amer 68, Est GFR (MDRD) Non-Af 57 L, BUN/Creatinine Ratio 20.8 H, Glucose 147 H, Calcium 9.3 04/14/22 23:05: Magnesium 2.5 04/15/22 09:20: Sodium 141, Potassium 3.3 L, Chloride 109 H, Carbon Dioxide 25.0, Anion Gap 7, BUN 17, Creatinine 0.98, Est GFR (MDRD) Af Amer 71, Est GFR (MDRD) Non-Af 58 L, BUN/Creatinine Ratio 17.3, Glucose 143 H, Calcium 8.7 04/15/22 09:20: WBC 7.5, RBC 4.45, Hgb 11.9 L, Hct 36.1 L, MCV 81.1, MCH 26.7 L, MCHC 33.0, Plt Count 382, MPV 10.2, Immature Gran % (Auto) 0.400, Neut % (Auto) 58.1, Lymph % (Auto) 30.1, [place] % (Auto) 5.6, Eos % (Auto) 4.9, Baso % (Auto) 0.9, Absolute Neuts (auto) 4.4, Nucleated RBC % 0 Rhythm: Normal sinus rhythm EKG: Normal sinus with nonspecific ST-T change Radiography Diagnostic Testing: Radiology Impression Chest X-Ray 04/14/22 00:10 IMPRESSION: No radiographic evidence of acute cardiopulmonary disease. Electronically Signed: Mk Grewal MD at 0:57 EDT ,
--- NOTE | 2022-04-15 13:10 | PCM.HOSP.N ---
Hospitalist Note Mrs. Chun is a 76-year-old female who was referred to the emergency department early this morning due to a 6 beat run of VT noted on an event monitor she had been wearing. She had been experiencing lightheadedness and shortness of breath with palpitations that prompted event monitor to be initiated. There was concern that possibly she had atrial fibrillation. She was admitted to the hospital and has been monitored on telemetry with no further events since admission. She was found to be hypokalemic and potassium replacement was performed with repeat electrolytes to be drawn later today. She was evaluated by cardiology and they feel if she has no further events of nonsustained VT she may be discharged home tomorrow and follow-up with her primary etch operator semiconductor wafers, Dr. Mueller, as an outpatient to discuss further possible cardiac catheterization due to long history of STEMI with previous bare-metal stent.
--- NOTE | 2022-04-15 15:54 | CASEMGMT ---
HARI CM in to discuss GATES form with patient. RN CM explained GATES form, patient voiced understanding. Pt signed form and filed in chart. Pt provided with a copy of signed GATES form. Patient had no further questions or concerns at this time.
[2022-04-16] VITALS (7 sets, daily range): BP systolic 115–126; BP diastolic 57; PULSE 76–101; RESP 16–18; TEMP 35.9–36.4; O2SAT 94–97
[2022-04-16 07:13] LABS: Anion Gap 7 (5-15); BUN 16 mg/dL (7-18); BUN/Creat Ratio 16.6 RATIO (10-20); Calcium,Total 8.6 mg/dL (8.5-10.1); Chloride 109 mmol/L (98-107); Creatinine, Serum 0.96 mg/dL (0.55-1.02); EST Glomerular Filtration Rate 60 mL/min (>60); Est Glom Filt Rate - Afr Amer 72 mL/min (>60); Estimated Creatinine Clearance 37.62 ml/min; Glucose 116 mg/dL (74-106); Potassium 3.8 mmol/L (3.5-5.1); Sodium Level 140 mmol/L (136-145)
[2022-04-16] MEDS: Albuterol 2.5 MG/3 ML VIAL.NEB. INHALATION (07:32)
[2022-04-16] MEDS: Budesonide Respules 0.5 MG/2 ML AMPUL.NEB. INHALATION (07:32)
[2022-04-16] MEDS: Aspirin 81 MG TAB.CHEW PO (08:53)
[2022-04-16] MEDS: Losartan Potassium 100 MG Tablet PO (08:53)
[2022-04-16] MEDS: Metoprolol Tartrate 25 MG Tablet PO (08:53)
[2022-04-16] MEDS: hydroCHLOROthiazide 25 MG Tablet PO (08:54)
[2022-04-16] MEDS: Pyridoxine HCl 100 MG Tablet PO (08:54)
--- NOTE | 2022-04-16 09:48 | DS.PCM_ITS ---
Providers Date of Admission: 04/15/22 Date of Discharge: 04/16/22 Primary Care Physician: Dr. Mariluz Mcguire MD Consultations 04/15/22 05:17 Consult: Cardiology Routine Consulting Provider: Mary Kay Thomas Reason for Consult: Dysrhythmia EMERGENT Consult: No MD Notified: Yes Date Notified: 04/15/22 Time Notified: 07:44 Method of Notification: Text Reason For Visit: DYSRHYTHMIA Diagnosis Discharge Diagnosis (1) Hypokalemia: Status: Acute Code(s): E87.6 - Hypokalemia (2) History of ST elevation myocardial infarction (STEMI): Status: Resolved Code(s): I25.2 - Old myocardial infarction (3) Old inferior wall myocardial infarction: Status: Chronic Code(s): I25.2 - Old myocardial infarction (4) History of coronary artery stent placement: Status: Resolved Code(s): Z95.5 - Presence of coronary angioplasty implant and graft (5) Essential (primary) hypertension: Status: Chronic Code(s): I10 - Essential (primary) hypertension (6) Hyperlipidemia: Status: Chronic Code(s): E78.5 - Hyperlipidemia, unspecified Qualifiers: Hyperlipidemia type: pure hypercholesterolemia Qualified Code(s): E78.00 - Pure hypercholesterolemia, unspecified; E78.0 - Pure hypercho lesterolemia (7) History of right breast cancer: Status: Acute Code(s): Z85.3 - Personal history of malignant neoplasm of breast (8) Nonsustained ventricular tachycardia: Status: Acute Code(s): I47.2 - Ventricular tachycardia Medications at Discharge Home Medications aspirin 81 mg chewable tablet 81 mg PO DAILY@0800 07/11/14 multivitamin with folic acid 400 mcg tablet 1 tab PO DAILY 07/11/14 pyridoxine (vitamin B6) 100 mg tablet 100 mg PO ONCE 09/20/17 budesonide-formoterol HFA 160 mcg-4.5 mcg/actuation aerosol inhaler 6 g IH DAILY 04/15/20 hydrochlorothiazide 25 mg tablet 25 mg PO DAILY #90 tabs 03/07/22 losartan 100 mg tablet 100 mg PO DAILY #90 tabs 03/07/22 metoprolol tartrate 25 mg tablet 25 mg PO BID #180 tabs 03/07/22 Hospital Course Operations None Procedures 2-D Echocardiogram and EKG Summary of Care Provided Minutes Spent on Discharge: 25 Hospital Course: Mrs. Rojo is a 76-year-old white female who presented to the emergency department was coming hospital on the a.m. of 04/15/2022 as directed by her tire mold tester office due to a 6 beat run of VT noted on an event monitor. She evidently had been experiencing some lightheadedness and shortness of breath with palpitations that prompted an event monitor to be initiated. There was some concern that she possibly had atrial fibrillation. She was wearing her event and monitor as instructed when she was notified by the tire mold tester office that they were notified by the event monitor company that she had arrhythmia and recommended referral to the emergency department. She was admitted to the hospital and placed on telemetry. She was hypokalemic on presentation and potassium replacement was initiated. Magnesium level was within normal limits. Her hypokalemia resolved prior to discharge. She was evaluated by cardiology on 04/16/2022 after an echocardiogram was performed. Her echo showed an EF of 55 to 60% with no significant abnormalities. Cardiology felt that since her echo was structurally normal and she was having no further events of nonsustained VT that she could be discharged on 04/16/2022 if she had no further cardiac arrhythmias on telemetry overnight. We reviewed her cardiac telemetry on the a.m. of 04/16/2022 and it was unremarkable. A TSH was obtained and found to be 2.87. Of note she did have a stress echo performed on 04/04/2022 that showed no inducible ischemia and an EF of 63%. She was asymptomatic through the night and anxious to go home. It was recommended she follow-up with her primary tire mold tester, Dr. Mueller, as an outpatient to discuss further possible more invasive work-up versus continued medical management. She does have a history of 2 bare-metal stents which were placed in 2007 but she is had no problems since that point time. She is to follow-up within the next week with cardiology's office and reapply her event monitor after discharge. She is to follow-up with her primary care physician as needed. No medication changes were made during her hospitalization. Discharge diagnoses: Nonsustained VT-6 beat run Hypokalemia CAD Hyper Hyper lipid Kell History of right ductal carcinoma Asthma History of GERD History of tobacco abuse COPD Gold stage I Physical Exam Narrative No issues overnight. Telemetry has been unremarkable. Patient's been asymptomatic since arriving in the hospital. Const alert, oriented x3, no apparent distress, healthy appearing and well nourished Constitutional Narrative: Overweight, older white female sitting up in bed, appears comfortable and nontoxic, watching television and talking on her cell phone General Appearance: cooperative, comfortable, well kempt and well developed Orientation / Consciousness: awake, oriented to person, oriented to place and oriented to time Exam Limitations: no limitations Nutritional Appearance: overweight HEENT normocephalic, head/scalp atraumatic, hearing grossly normal bilaterally and moist oral mucous membranes HEENT Narrative: Dentures in place, Mallampati 2, no thrush Resp normal respiratory effort, no retractions, no use of accessory muscles and clear to auscultation bilaterally Auscultation: Negative for crackles, rales, rhonchi or wheezes Cardio regular rate, regular rhythm, S1 normal heart sound, S2 normal heart sound, no murmurs, no rub, no gallops, no clicks and no JVD GI normal to inspection, nondistended, normoactive bowel sounds, soft to palpation, non-tender and non-distended; Negative for hepatosplenomegaly Extremity no clubbing, cyanosis or edema Extremity Narrative: 2+ pedal pulses Neuro oriented x3, CN's II-XII intact bilaterally, moves all extremities and no focal motor deficits Speech: speech normal Psych affect normal Weight / BMI Weight Weight: 69.3 kg Body Mass Index (BMI) 28.8 ABG / Lab / Microbiology Data Result Diagrams: 04/15/22 09:20 04/16/22 05:26 Laboratory: Laboratory Results - last 24 hr 04/15/22 09:20: Sodium 141, Potassium 3.3 L, Chloride 109 H, Carbon Dioxide 25.0, Anion Gap 7, BUN 17, Creatinine 0.98, Estim Creat Clear Calc 36.85, Est GFR (MDRD) Af Amer 71, Est GFR (MDRD) Non-Af 58 L, BUN/Creatinine Ratio 17.3, Glucose 143 H, Calcium 8.7, TSH 2.87 04/16/22 05:26: Sodium 140, Potassium 3.8, Chloride 109 H, Carbon Dioxide 24.0, Anion Gap 7, BUN 16, Creatinine 0.96, Estim Creat Clear Calc 37.62, Est GFR (MDRD) Af Amer 72, Est GFR (MDRD) Non-Af 60, BUN/Creatinine Ratio 16.6, Glucose 116 H, Calcium 8.6 Radiography Diagnostic Testing: Radiology Impression Echocardiogram 04/15/22 12:00 Interpretation Summary The estimated ejection fraction is 55-60 %. Normal LV systolic functiom The global Longitudinal strain 20.3 nor,al Ordering Physician: Mary Kay Thomas Referring Physician: Mariluz Mcguire M.D. Performed By: Amanda Connor RDCS D/C Instructions Discharge Diet: Low fat / Low cholesterol Discharge Activity: Return to Normal Activity Meaningful Use Info Meaningful Use Diagnoses (Choose all that apply): None applicable Discharge Plan Admission Admit Date/Time: 04/15/22 01:57 Primary Reason for Your Visit: Cardiac Arrhythmia Attending Provider: Trish Kerr Primary Care Provider: Mariluz Mcguire Consulting Providers: Allan aFng ; Mary Kay Thomas Discharge Orders/Prescriptions Prescriptions: Continued pyridoxine (vitamin B6) 100 mg tablet 100 mg PO ONCE aspirin 81 MG tablet,chewable 81 mg PO DAILY@0800 multivitamin with folic acid 1 TABLET tablet 1 tab PO DAILY budesonide-formoterol 6 GM HFA aerosol inhaler 6 g IH DAILY hydrochlorothiazide 25 mg tablet 25 mg PO DAILY Qty: 90 4RF losartan 100 mg tablet 100 mg PO DAILY Qty: 90 3RF metoprolol tartrate 25 mg tablet 25 mg PO BID Qty: 180 3RF Referrals / Follow Up: Mariluz Mcguire MD [Primary Care Provider] - See Referral Note (As needed did) Stella Osuna PA [Med Staff - Adv Practice Prof] - In 1 Week (Call on 04/17/2022 to obtain an appointment as soon as available for hospital follow-up) Disposition Disposition (needs filled in before D/C Order can be placed): Home, Self Care Charges/Coding Visit Charges Inpatient E&M: 08541 Disch Hosp
== END 2022-04-16 10:10 | disposition home or self-care (01) ==
LOC: ED 04-15 01:12 → PCU 04-15 04:02
PROVIDERS: Admitting Provider Hospitalist; Emergency Provider Student in an Organized Health Care Education/Training Program; PCP Family Medicine; Visit Provider Internal Medicine
DX: E87.6 Hypokalemia (principal); J44.9 Chronic obstructive pulmonary disease, unspecified; I47.2 Ventricular tachycardia; I10 Essential (primary) hypertension; E78.00 Pure hypercholesterolemia, unspecified; R00.2 Palpitations; I25.10 Atherosclerotic heart disease of native coronary artery without angina pectoris; Z79.82 Long term (current) use of aspirin; Z87.891 Personal history of nicotine dependence; I25.2 Old myocardial infarction; Z79.899 Other long term (current) drug therapy; K21.9 Gastro-esophageal reflux disease without esophagitis
CPT/HCPCS: 36415; 71045; 80048; 83735; 84443; 84484; 85025; 93005; 93306; 94640; 96365; 99218; 99285; A4216; G0378

== ENCOUNTER → 2022-04-27 | Outpatient (CLI) | payer MEDICARE, OTHER, SELFPAY ==
[2022-04-27 10:56] LABS: Anion Gap 7 (5-15); BUN 21 mg/dL (7-18); BUN/Creat Ratio 16.4 RATIO (10-20); Calcium,Total 9.3 mg/dL (8.5-10.1); Chloride 103 mmol/L (98-107); Creatinine, Serum 1.28 mg/dL (0.55-1.02); EST Glomerular Filtration Rate 43 mL/min (>60); Est Glom Filt Rate - Afr Amer 52 mL/min (>60); Glucose 107 mg/dL (74-106); Potassium 3.1 mmol/L (3.5-5.1); Sodium Level 138 mmol/L (136-145)
== END | disposition home or self-care (01) ==
LOC: LAB 10:01
PROVIDERS: PCP Family Medicine; Visit Provider Physician Assistant Medical
DX: I47.2 Ventricular tachycardia (principal); E87.6 Hypokalemia; I25.10 Atherosclerotic heart disease of native coronary artery without angina pectoris; I10 Essential (primary) hypertension; E78.00 Pure hypercholesterolemia, unspecified
CPT/HCPCS: 36415; 80048

== ENCOUNTER → 2022-05-02 | Outpatient (CLI) | payer MEDICARE, OTHER, SELFPAY ==
[2022-05-02 13:01] LABS: Anion Gap 6 (5-15); BUN 16 mg/dL (7-18); BUN/Creat Ratio 14.2 RATIO (10-20); Chloride 110 mmol/L (98-107); Creatinine, Serum 1.13 mg/dL (0.55-1.02); EST Glomerular Filtration Rate 50 mL/min (>60); Est Glom Filt Rate - Afr Amer 60 mL/min (>60); Glucose 110 mg/dL (74-106); Sodium Level 141 mmol/L (136-145)
== END | disposition home or self-care (01) ==
PROVIDERS: PCP Family Medicine; Referring Provider Nurse Practitioner Gerontology; Visit Provider Nurse Practitioner Gerontology
DX: E87.6 Hypokalemia (principal)
CPT/HCPCS: 36415; 80048

== ENCOUNTER → 2022-06-27 | Outpatient (CLI) | payer MEDICARE, OTHER, SELFPAY ==
[2022-06-27 17:43] LABS: Absolute Lymphocyte Count 2.88 X10^3/uL (0.83-4.51); Absolute Neutrophil Count 7.5 X10^3/uL (2.0-7.7); Basophil# 0.08 X10^3/uL; Basophil% 0.7 % (0-1); Eosinophil# 0.37 X10^3/uL; Eosinophils% 3.2 % (0-5); Hematocrit 36.5 % (37-47); Hemoglobin 11.7 g/dL (12.0-15.0); Lymphocyte # 2.88 X10^3/ul (0.83-4.51); Mean Corp Hgb Conc 32.1 g/dL (32-36); Mean Corpuscular Hgb 26.7 pg (27.0-32.0); Mean Corpuscular Volume 83.1 fL (81-99); Mean Platelet Vol. 10.3 fl (6.2-12.0); Monocyte# 0.64 X10^3/uL; Monocyte% 5.6 % (0-10); NRBC Flagged by Analyzer 0 % (0-5); Neutrophil # 7.46 X10^3/uL (2.7-7.7); Neutrophil % 64.7 % (47-70); Platelet Count 417 K/mm3 (150-450); RBC Distribution Width CV 17.6 % (11.6-14.6); RBC Distribution Width SD 53.1 fl (35.1-43.9); Red Blood Count 4.39 M/mm3 (4.2-5.4); White Blood Count 11.5 K/mm3 (4.4-11.0)
[2022-06-27 18:09] LABS: Anion Gap 6 (5-15); BUN 29 mg/dL (7-18); BUN/Creat Ratio 21.3 RATIO (10-20); Calcium,Total 9.2 mg/dL (8.5-10.1); Chloride 105 mmol/L (98-107); Creatinine, Serum 1.36 mg/dL (0.55-1.02); EST Glomerular Filtration Rate 40 mL/min (>60); Est Glom Filt Rate - Afr Amer 49 mL/min (>60); Glucose 105 mg/dL (74-106); Potassium 4.5 mmol/L (3.5-5.1); Sodium Level 135 mmol/L (136-145)
== END | disposition home or self-care (01) ==
LOC: MFPLAB 16:24
PROVIDERS: PCP Family Medicine; Referring Provider Family Medicine; Visit Provider Family Medicine
DX: E61.1 Iron deficiency (principal); I10 Essential (primary) hypertension
CPT/HCPCS: 36415; 80048; 85025

== ENCOUNTER → 2023-01-02 | Outpatient (CLI) | payer MEDICARE, SELFPAY ==
[2023-01-02 12:35] LABS: Absolute Lymphocyte Count 2.16 X10^3/uL (0.83-4.51); Absolute Neutrophil Count 5.7 X10^3/uL (2.0-7.7); Basophil# 0.12 X10^3/uL; Basophil% 1.3 % (0-1); Eosinophils% 4.4 % (0-5); Hematocrit 41.9 % (37-47); Hemoglobin 13.1 g/dL (12.0-15.0); Lymphocyte # 2.16 X10^3/ul (0.83-4.51); Mean Corp Hgb Conc 31.3 g/dL (32-36); Mean Corpuscular Hgb 27.1 pg (27.0-32.0); Mean Corpuscular Volume 86.7 fL (81-99); Mean Platelet Vol. 9.9 fl (6.2-12.0); Monocyte# 0.54 X10^3/uL; NRBC Flagged by Analyzer 0 % (0-5); Neutrophil # 5.73 X10^3/uL (2.7-7.7); Neutrophil % 63.6 % (47-70); Platelet Count 409 K/mm3 (150-450); RBC Distribution Width CV 15.2 % (11.6-14.6); RBC Distribution Width SD 48.3 fl (35.1-43.9); Red Blood Count 4.83 M/mm3 (4.2-5.4)
[2023-01-02 12:57] LABS: Microalbumin,Random Urine 89.4 mg/L (NO RANGE EST.); Microalbumin:Creatinine Ratio 43.4 mg/g CRE (<30 mg/g CRE)
[2023-01-02 13:09] LABS: Anion Gap 9 (5-15); BUN 22 mg/dL (7-18); BUN/Creat Ratio 17.5 RATIO (10-20); Calcium,Total 9.3 mg/dL (8.5-10.1); Chloride 108 mmol/L (98-107); Cholesterol 188 mg/dL (200); Creatinine, Serum 1.26 mg/dL (0.55-1.02); EST Glomerular Filtration Rate 44 mL/min (>60); Est Glom Filt Rate - Afr Amer 53 mL/min (>60); Glucose 106 mg/dL (74-106); High Density Lipoprotein 46 mg/dL; Iron 48 ug/dL (50-170); Potassium 4.3 mmol/L (3.5-5.1); Sodium Level 138 mmol/L (136-145); Triglycerides 136 mg/dL; Very Low Density Lipoprotein 27 mg/dL (5-40)
== END | disposition home or self-care (01) ==
PROVIDERS: PCP Family Medicine; Referring Provider Family Medicine; Visit Provider Family Medicine
DX: I10 Essential (primary) hypertension (principal); E61.1 Iron deficiency
CPT/HCPCS: 36415; 80048; 80061; 82043; 82570; 83540; 85025

== ENCOUNTER → 2023-01-04 | Outpatient (CLI) | payer MEDICARE, SELFPAY ==
--- NOTE | 2023-01-04 06:34 | MRI_ITS ---
EXAM: MR LEFT UPPER EXTREMITY WITHOUT AND WITH INTRAVENOUS CONTRAST, HUMERUS CLINICAL INDICATION: pain, f/u to abnormality on xray TECHNIQUE: Multiplanar and multisequence MR images of the right humerus without and with intravenous contrast. CONTRAST: IV 14ml clariscan COMPARISON: December 22, 2022 FINDINGS: BONES/JOINTS: 1.1 cm calcific body along the anterior aspect of the humeral shaft may represent a focus of calcium hydroxyapatite crystal deposition disease or alternatively an intra-articular body within the long head of the biceps tendon sheath. Moderate hypertrophic degenerative changes of the acromioclavicular joint. No fracture. No abnormal bone marrow signal. No joint effusion. MUSCLES: Unremarkable. No edema or myositis. OTHER SOFT TISSUES: Long head of the biceps tendon appears to be intact and normal in position. Full-thickness supraspinatus tendon tear suspected, incompletely imaged on this study. MRI/Upper Ext No Joint W/WO Cont IMPRESSION: 1.1 cm calcific body along the anterior aspect of the humeral shaft may represent a focus of calcium hydroxyapatite crystal deposition disease or alternatively an intra-articular body within the long head of the biceps tendon sheath. Electronically Signed: Ceasar Valdez MD at 21:15 EDT ,
== END | disposition home or self-care (01) ==
LOC: MRI 06:25
PROVIDERS: PCP Family Medicine; Referring Provider Orthopaedic Surgery; Visit Provider Orthopaedic Surgery
DX: M89.8X2 Other specified disorders of bone, upper arm (principal)
CPT/HCPCS: 73220; A9575

== ENCOUNTER 2023-01-11 09:57 | Day surgery (SDC) | payer MEDICARE, SELFPAY ==
[2023-01-11] VITALS (7 sets, daily range): BP systolic 93–119; BP diastolic 53–93; PULSE 61–68; RESP 16; TEMP 35.7–36.2; O2SAT 96–100; BMI 29.1
--- NOTE | 2023-01-11 | ESO_PTH ---
PATIENT: THAO FRIEND LOC: EN U#:[id number] AGE/SX: 77/F ROOM: RE01/11/[address]: Dr. Arnold Medrano DO : 1945 BED: DIS: 01/11/2023 SPEC #: [id number] RECD: 01/11/23 13:56 STATUS: GIANNI MANZO #: [id number] BRENNA: 01/11/23 00:[address]: Arnold Medrano DEPT: SURGICAL PATHOLOGY RECD BY: Nomi Mora ENTERED: 01/11/23 13:57 SP TYPE: QUAN FELIX DR: Dr. Mariluz Mcguire MD Tissues: A - Esophagus, NOS B - SPLENIC FLEXURE C - Ascending colon D - Cecum, NOS E - Sigmoid colon biopsy Procedures: Special Stain Group II Surgery Specimen Level IV Alcian Blue/PAS (control) HEADER OPERATION: Colonoscopy, EGD (MAC), biopsy, electrohemostasis, polypectomy PRE-OP DIAGNOSIS: History of colonic polyps; esophageal reflux TISSUE SUBMITTED: A ? Distal esophagus biopsy, B ? Polyp splenic flexure biopsy, C ? Polyp ascending colon biopsy, D ? Polyp cecum biopsy, E ? Polyp sigmoid colon MICROSCOPIC DIAGNOSIS A. Distal esophagus, biopsy: Fragments of gastric mucosa with minimal chronic inflammation, congestion and hemorrhage. Intestinal metaplasia (goblet cell metaplasia) not identified. See comment. B. Polyp splenic flexure, biopsy: Fragments of hyperplastic polyp. C. Polyp ascending colon, biopsy: Fragments of tubular adenoma. D. Polyp cecum, biopsy: Tubular adenoma. E. Polyp sigmoid colon, polypectomy: Hyperplastic polyp with focal changes suggestive of serrated adenoma. AM:usama 01/12/2023 COMMENT A. Alcian blue/PAS stain with matched control is used in the evaluation of the specimen. MICROSCOPIC DESCRIPTION Slides are reviewed. GROSS DESCRIPTION A - Received in fixative is one container labeled with the patient's name and designated distal esophagus. The specimen consists of two irregular fragments of light [place] soft tissue that in aggregate measure 0.6 x 0.4 x 0.1 cm. The specimen is totally submitted in one cassette. B - Received in fixative is one container labeled with the patient's name and designated biopsy splenic flexure. The specimen consists of two irregular fragments of light [place] soft tissue that in aggregate measure 0.8 x 0.3 x 0.1 cm. The specimen is totally submitted in one cassette. C - Received in fixative is one container labeled with the patient's name and designated polyp ascending colon. The specimen consists of two irregular fragments of light [place] soft tissue that in aggregate measure 0.6 x 0.3 x 0.1 cm. The specimen is totally submitted in one cassette. D - Received in fixative is one container labeled with the patient's name and designated polyp cecum. The specimen consists of two irregular fragments of light [place] soft tissue that in aggregate measure 0.6 x 0.3 x 0.1 cm. The specimen is totally submitted in one cassette. E - Received in fixative is one container labeled with the patient's name and designated polyp sigmoid colon. The specimen consists of a [place]-pink polyp measuring 0.6 x 0.6 x 0.5 cm. The polyp is bisected and submitted entirely in one cassette. / SJ:usama 01/11/2023 TC:1 CPT: 63065 x5, 84222
[2023-01-11] MEDS: Lactated Ringers 1,000 ML 15 ML IV (10:27)
--- NOTE | 2023-01-11 10:48 | PCM.HP.BLA ---
History and Physical Date of Admission: 01/11/23 THAO FRIEND, is a 77 F who presents to the office today for needs to update colonoscopy. Hx of colon polyps, last colonoscopy was clear. She was recommended to get repeat colonoscopy in 2021. Has temporary stool changes when she eats beans, but otherwise no concerns. No diarrhea, constipation, melena, hematochezia. She gets postprandial acid reflux about every other week, doesn't take anything for it. No prior EGD. No nausea, vomiting, early satiety. No abd pain. She has trouble swallowing large pills. ROS Const Constitutional: No fatigue ENT ENT: Positive for difficulty swallowing Gastro GI: Positive for bloating, difficulty swallowing and excessive flatus; No abdominal pain, belching, change in bowel habits, change in stool character, coffee ground emesis, constipation, cramping, diarrhea, heartburn, feeling full early, incontinent of stools, Vomiting blood/hematemesis, Blood in stool, loose stools, Black,tarry stools, nausea/dyspepsia, pain with swallowing, vomiting or other Musc Musculoskeletal: Positive for joint pain, muscle cramps, muscle weakness, stiffness and Arthritis Skin Skin: No yellowing of the eye or itchy eyes Psych Psychiatric: No anxiety and No depression Endo Endocrine: No fatigue Aller/Imm Allergy/Immunologic: No itchy eyes Esteban/Lymp Hematologic/Lymphatic: No easy bleeding or easy bruising Exam Const General: cooperative and comfortable Orientation: alert, awake and oriented x3 Quality Reporting Tobacco Screening ([facility] 138) Smoking Status: Former smoker Assessment and Plan Assessment and Plan (1) Hx of colonic polyps: ?Status:?Acute ?Plan: 77 yr old female with hx of colon polyps, due for colonoscopy. Will also get EGD since she has intermittent acid reflux as well as difficulty swallowing large pills. f/u in office 2 wks after procedure to review results. (2) Esophageal reflux: ?Status:?Chronic ?Plan: I have examined the patient and the H&P has been reviewed. There are no clinical changes since date of exam. as above
--- NOTE | 2023-01-11 11:45 | OP.EGD_ITS ---
Patient Name: Jo Rojo Procedure Date: 01/11/2023 10:48 AM Date of : 1945 Age: 77 Procedure: Upper GI endoscopy Indications: Iron deficiency anemia, Heartburn Providers: Arnold Medrano DO Referring MD: Mariluz Mcguire Medicines: Monitored Anesthesia Care Patient Profile: This is a 77 year old female. Refer to note in patient chart for documentation of history and physical. Patient has symptoms of chronic heartburn. Complications: No immediate complications. Procedure: Pre-Anesthesia Assessment: - Prior to the procedure, a History and Physical was performed, and patient medications and allergies were reviewed. The patient is competent. The risks and benefits of the procedure and the sedation options and risks were discussed with the patient. All questions were answered and informed consent was obtained. Patient identification and proposed procedure were verified by the physician in the pre-procedure area. Mental Status Examination: alert and oriented. Airway Examination: normal oropharyngeal airway and neck mobility. Respiratory Examination: clear to auscultation. CV Examination: normal. Prophylactic Antibiotics: The patient does not require prophylactic antibiotics. Prior Anticoagulants: The patient has taken no previous anticoagulant or antiplatelet agents. ASA Grade Assessment: II - A patient with mild systemic disease. After reviewing the risks and benefits, the patient was deemed in satisfactory condition to undergo the procedure. The anesthesia plan was to use monitored anesthesia care (MAC). Immediately prior to administration of medications, the patient was re-assessed for adequacy to receive sedatives. The heart rate, respiratory rate, oxygen saturations, blood pressure, adequacy of pulmonary ventilation, and response to care were monitored throughout the procedure. The physical status of the patient was re-assessed after the procedure. After obtaining informed consent, the endoscope was passed under direct vision. Throughout the procedure, the patient's blood pressure, pulse, and oxygen saturations were monitored continuously. The Colonoscope was introduced through the mouth, and advanced to the second part of duodenum. The Endoscope was introduced through the and advanced to the. The upper GI endoscopy was accomplished without difficulty. The patient tolerated the procedure well. Scope In: 10:56:12 AM Scope Out: 11:05:33 AM Total Procedure Duration Time 0 hours 9 minutes 21 seconds Findings: The Z-line was irregular and was found 37 cm from the incisors. Biopsies were taken with a cold forceps for histology. Verification of patient identification for the specimen was done. Estimated blood loss was minimal. A small hiatal hernia was present. No other significant abnormalities were identified in a careful examination of the stomach. The first portion of the duodenum was normal. Impression: - Z-line irregular, 37 cm from the incisors. Biopsied. - Small hiatal hernia. - Normal first portion of the duodenum. Recommendation: - Discharge patient to home. - Resume previous diet. - Continue present medications. - Await pathology results. Procedure Code(s): --- Professional --- 70082, Esophagogastroduodenoscopy, flexible, transoral; with biopsy, single or multiple CPT copyright 2017 [employer]. All rights reserved. The codes documented in this report are preliminary and upon suede brusher review may be revised to meet current compliance requirements. Arnold Medrano DO 01/11/2023 11:45:26 AM This report has been signed electronically. Number of Addenda: 0 Note Initiated On: 01/11/2023 10:48 AM
--- NOTE | 2023-01-11 11:46 | OP.CCLET_ITS ---
01/11/2023 Mariluz Mcguire [address] [place] [address] Re : Upper GI endoscopy procedure for Jo Rojo Dear Dr. Mcguire This procedure was performed on December. My impressions and recommendations are as follows: Impressions : - Z-line irregular, 37 cm from the incisors. Biopsied. - Small hiatal hernia. - Normal first portion of the duodenum. Recommendations : - Discharge patient to home. - Resume previous diet. - Continue present medications. - Await pathology results. My findings are described in the full procedure note, which is enclosed. If I can be of further assistance, please feel free to contact me at . Sincerely, Arnold Medrano, 01/11/2023 11:45:26 AM This report has been signed electronically.
--- NOTE | 2023-01-11 12:28 | OP.COLON_ITS ---
Patient Name: Jo Rojo Procedure Date: 01/11/2023 11:07 AM Date of : 1945 Age: 77 Procedure: Colonoscopy Indications: High risk colon cancer surveillance: Personal history of colonic polyps Providers: Arnold Medrano DO Referring MD: Mariluz Mcguire Medicines: Monitored Anesthesia Care Patient Profile: This is a 77 year old female. Refer to note in patient chart for documentation of history and physical. Patient has symptoms of chronic heartburn. Last Colonoscopy: 3 years ago. Complications: No immediate complications. Procedure: Pre-Anesthesia Assessment: - Prior to the procedure, a History and Physical was performed, and patient medications and allergies were reviewed. The patient is competent. The risks and benefits of the procedure and the sedation options and risks were discussed with the patient. All questions were answered and informed consent was obtained. Patient identification and proposed procedure were verified by the physician in the pre-procedure area. Mental Status Examination: alert and oriented. Airway Examination: normal oropharyngeal airway and neck mobility. Respiratory Examination: clear to auscultation. CV Examination: normal. Prophylactic Antibiotics: The patient does not require prophylactic antibiotics. Prior Anticoagulants: The patient has taken no previous anticoagulant or antiplatelet agents. ASA Grade Assessment: II - A patient with mild systemic disease. After reviewing the risks and benefits, the patient was deemed in satisfactory condition to undergo the procedure. The anesthesia plan was to use monitored anesthesia care (MAC). Immediately prior to administration of medications, the patient was re-assessed for adequacy to receive sedatives. The heart rate, respiratory rate, oxygen saturations, blood pressure, adequacy of pulmonary ventilation, and response to care were monitored throughout the procedure. The physical status of the patient was re-assessed after the procedure. After I obtained informed consent, the scope was passed under direct vision. Throughout the procedure, the patient's blood pressure, pulse, and oxygen saturations were monitored continuously. The Colonoscope was introduced through the anus and advanced to the cecum, identified by appendiceal orifice and ileocecal valve. The colonoscopy was performed without difficulty. The patient tolerated the procedure well. The quality of the bowel preparation was adequate. Scope In: 11:10:46 AM Scope Withdrawal Time 0 hours 22 minutes 39 seconds Scope Out: 11:39:06 AM Total Procedure Duration Time 0 hours 28 minutes 20 seconds Findings: The perianal and digital rectal examinations were normal. Scattered small and large-mouthed diverticula were found in the recto-sigmoid colon, sigmoid colon and descending colon. Two sessile polyps were found in the sigmoid colon. The polyps were 1 to 2 mm in size. These polyps were removed with a hot snare. Resection and retrieval were complete. Verification of patient identification for the specimen was done. Estimated blood loss was minimal. Four medium-sized localized angiodysplastic lesions with bleeding were found in the cecum. Coagulation for hemostasis using heater probe was successful. A 5 mm polyp was found in the cecum. The polyp was sessile. The polyp was removed with a jumbo cold forceps. Resection and retrieval were complete. Estimated blood loss: none. Impression: - Diverticulosis in the recto-sigmoid colon, in the sigmoid colon and in the descending colon. - Two 1 to 2 mm polyps in the sigmoid colon, removed with a hot snare. Resected and retrieved. - Four bleeding colonic angiodysplastic lesions. Treated with a heater probe. - One 5 mm polyp in the cecum, removed with a jumbo cold forceps. Resected and retrieved. Recommendation: - Repeat colonoscopy in 3 years for surveillance. - Continue present medications. Procedure Code(s): --- Professional --- 05888, 59, Colonoscopy, flexible; with control of bleeding, any method 46098, Colonoscopy, flexible; with removal of tumor(s), polyp(s), or other lesion(s) by snare technique 34046, 59, Colonoscopy, flexible; with biopsy, single or multiple CPT copyright 2017 [place] [employer]. All rights reserved. The codes documented in this report are preliminary and upon gunner mate review may be revised to meet current compliance requirements. Arnold Medrano DO 01/11/2023 12:27:46 PM This report has been signed electronically. Number of Addenda: 0 Note Initiated On: 01/11/2023 11:07 AM
--- NOTE | 2023-01-11 12:29 | OP.CCLET_ITS ---
01/11/2023 Mariluz Mcguire [address] [place] [address] Re : Colonoscopy procedure for Jo Rojo Dear Dr. Mcguire This procedure was performed on December. My impressions and recommendations are as follows: Impressions : - Diverticulosis in the recto-sigmoid colon, in the sigmoid colon and in the descending colon. - Two 1 to 2 mm polyps in the sigmoid colon, removed with a hot snare. Resected and retrieved. - Four bleeding colonic angiodysplastic lesions. Treated with a heater probe. - One 5 mm polyp in the cecum, removed with a jumbo cold forceps. Resected and retrieved. Recommendations : - Repeat colonoscopy in 3 years for surveillance. - Continue present medications. My findings are described in the full procedure note, which is enclosed. If I can be of further assistance, please feel free to contact me at . Sincerely, Arnold Medrano, 01/11/2023 12:27:46 PM This report has been signed electronically.
== END 2023-01-11 12:59 | disposition home or self-care (01) ==
LOC: EN 09:58 → AC 10:00
PROVIDERS: PCP Family Medicine; Referring Provider Family Medicine; Visit Provider Internal Medicine Gastroenterology
PROC: 0DJD8ZZ Inspection of Lower Intestinal Tract, Via Natural or Artificial Opening Endoscopic (ICD-10-PCS; CPT 45378; principal; 2023-01-11 11:10)
DX: Z12.11 Encounter for screening for malignant neoplasm of colon (principal); J44.9 Chronic obstructive pulmonary disease, unspecified; K92.2 Gastrointestinal hemorrhage, unspecified; Z87.891 Personal history of nicotine dependence; K57.30 Diverticulosis of large intestine without perforation or abscess without bleeding; D50.9 Iron deficiency anemia, unspecified; Z86.010 Personal history of colon polyps; K44.9 Diaphragmatic hernia without obstruction or gangrene; K21.9 Gastro-esophageal reflux disease without esophagitis; D12.2 Benign neoplasm of ascending colon; D12.0 Benign neoplasm of cecum; Z79.82 Long term (current) use of aspirin
CPT/HCPCS: 45380; 45385; 43239; 45382; 88305; 88313; J7120; J2405

== ENCOUNTER → 2023-01-23 | Outpatient (CLI) | payer MEDICARE, SELFPAY ==
--- NOTE | 2023-01-23 07:52 | CT_ITS ---
STUDY: CT SOFT TISSUE NECK WITH CONTRAST REASON FOR EXAM: Female, 77 years old. Left neck mass. History of breast cancer. RADIATION DOSAGE (If Supplied By Facility): CTDIvol = ( 16.51 ) mGy, DLP = ( 461.83 ) mGycm TECHNIQUE: The patient was scanned in a multi-detector CT scanner. High resolution transaxial imaging was performed following intravenous administration of IV 100mL Isovue-370. Sagittal and coronal images were reconstructed. Individualized dose optimization techniques were used for this CT. COMPARISON: None. FINDINGS: Normal bilateral parotid glands. Normal bilateral washing machine loader spaces. Normal bilateral parapharyngeal spaces. Normal bilateral carotid spaces. Normal bilateral sublingual and submandibular glands and spaces. Normal visualized nasopharynx. Normal retropharyngeal space. Normal perivertebral space. Normal visualized bilateral faucial tonsils. The visualized tongue, tongue base and oropharynx are normal. The visualized cervical lymph nodes (levels I-) are within normal size limits, and maintain normal morphology. There is no demonstrated solid or cystic mass lesion. There is no abnormal contrast enhancement. Normal epiglottis, bilateral vallecula and hypopharynx. The pre-epiglottic and paraglottic adipose spaces are normal. Normal visualized bilateral piriform sinuses, aryepiglottic folds, vocal cords, and arytenoid-cricoid articulations. Normal subglottic trachea. Normal bilateral lobes of the thyroid gland. Normal visualized pulmonary apices. Minimal air-fluid level in the left maxillary sinus. Mild degenerative changes of the cervical spine. CT/Soft Tissue Neck WITH Contrast IMPRESSION: Normal enhanced CT examination of the soft tissues of the neck. Electronically Signed: Jose J Norris DO at 18:36 EDT Reading Location ID and State: [address] [place] [address] Tel [phone], Service support ,
== END | disposition home or self-care (01) ==
LOC: CT 07:51
PROVIDERS: PCP Family Medicine; Referring Provider Family Medicine; Visit Provider Family Medicine
DX: R22.1 Localized swelling, mass and lump, neck (principal)
CPT/HCPCS: 70491; Q9967

== ENCOUNTER → 2023-02-01 | Outpatient (CLI) | payer MEDICARE, SELFPAY ==
[2023-02-01 13:36] LABS: Iron 42 ug/dL (50-170)
== END | disposition home or self-care (01) ==
LOC: MFPLAB 10:13
PROVIDERS: PCP Family Medicine; Visit Provider Family Medicine
DX: D64.9 Anemia, unspecified (principal)
CPT/HCPCS: 36415; 83540

== ENCOUNTER 2023-02-15 15:30 | Outpatient (RCR) | payer MEDICARE, SELFPAY ==
--- NOTE | 2023-01-18 11:47 | HP.PTEVAL_ITS ---
Patient's Visit Information THAO FRIEND is a 77 year old F referred to Physical Therapy by Dr. Allan Grubbs DO with a diagnosis of R shoulder OA and CDD. Date of Evaluation: 01/18/23 Physical Therapist: José Miguel Garcia, DPT, OCS, CSCS - Visit Plan Frequency: 2x /Week Duration: 4-6 Weeks Plan: 2x/week for 4-6 weeks for. 1. US R supraspinatus nonthermal. 2. grade 1- 2 mobs g-h and er ROM, arm pull. 3. RC and postural/scap stabs, cervical AROM and postural correction. ensure activity modifcaiton - Subjective R arm hurts, go tinjection and it did not help. has hurt sinceMarch. Just woke up one morning and had pain and progressed to worse. Has tried medicine for tendinitis. Dr. Escobar gave injection which has not helped. pain start in shoulder with moving it and writing and can hurt down through back of fingers. Most of pain is upper arm. Injection did help she then says 7/10 since injection and 9/10 prior. Hard to lift arm to shelf, hard to wash hair. She is R handed. No R sided neck pain. No numbness or tingling in arm. Has to be moving for arm to hurt. Lingers a while. Sleep is not interrupted typically but it can wake her up if she pulls blanket up. No regular exercises. Hobbies: babysit one year old and has to modfy picking her up. ADLs: hair is difficult, compensates dressing. - Pain R arm Pain Intensity (Out of 10): 0 Pain Intensity Range: 0, 7 - Objective Walks I into PT with protracted scap posture adn forward head. I. Trasnfers bed adn chair are I. Good balance. Cervical aROM 40 ext adn 50 B rotations no pain, symmetrical SB without pain. - c/s compression test. AROM L UE WFL and without pain. R shoulder AROM pain with LLA flexion and AROM OH limited at first to 120, then can push it up all the way. er 40 vs 60 on L, IR full and without pain. Wrist and hand synmmetrical AROM without pain. Tender to palpation mostly over the supraspinatus tendon, not overly tender in cervical or other shoulder structures. reflexes 2/3 bi adn tri. Sensation UE WNL to gross light touch. Strength R er 3+ pain, 4- IR no pain. flexion painful at 3+ adn abduction painful at 3+. l arm 4 adn no pain. Wrist adn elbow B no pain and 4/5. + HK r, + neer R, - ext rotation lag test, - drop arm. PROM full on R and er to 75 degrees. - Balance/Special Test Scores Quick DASH Score: 45.4525 - Goals Goal 1:: Pain in R UE 90% better adn 1/10 at worst. Goal Time Frame: 4-6 Weeks Goal 2:: I management of condition with ex, posture and activity mod Goal Time Frame: 4-6 Weeks Goal 3:: qucikdash score 16 or less Goal Time Frame: 4-6 Weeks Goal 4:: Get dressed and do hair without modification Goal Time Frame: 4-6 Weeks - Rehabilitation Potential Physical Therapy Diagnosis: R arm pain limiting function and ADLs. Rehabilitation Potential: Fair - Anticipated Interventions Patient/Client Instruction: Educate patient on: Condition, Plan of Care For the Purpose of:: To decrease pain, To increase ROM, To improve nutrient delivery to tissue, To improve muscle performance and motor function, To increase tolerance to activity/condition/position Therapeutic Exercise to Include: Strength training, Postural training, Flexibilty training, Passive ROM, Active ROM, Scapular Strength/Stabilization For the Purpose of:: To decrease pain, To increase ROM, To improve nutrient delivery to tissue, To improve muscle performance and motor function, To increase tolerance to activity/condition/position, To improve ability of physical actions for home/community/work/leisure Manual Therapy Techniques to Include: Mobilization, Passive ROM, Soft tissue mobilization For the Purpose of:: To decrease pain, To increase ROM, To improve nutrient delivery to tissue Ultrasound (thermal/non thermal): Yes - nonthermal For the Purpose of:: To decrease swelling/inflammation Thank you for the opportunity to evaluate your patient. For Medicare and Medicare HMO plans, please review the plan of care and approve it. It will need to be FAXED BACK to us at [phone] for Medicare purposes. For Medicare only, by signing this I certify the plan of care. Please let me know if there are questions or concerns regarding this plan of care. Physician Signature: Date:
--- NOTE | 2023-02-15 16:12 | HP.PTDCSUM ---
It has been my pleasure to treat THAO FRIEND referred by Dr. Allan Grubbs DO, with the diagnosis of R shoulder OA and CDD for a total of 9 visit(s). Discharge Date: 02/15/23 Please see the following information for a summary of their discharge status. Subjective: So much better. I can move arm now without pain. Only a twinge now and then with moving arm funny but transient. Activities are normal. Sleep is OK. will have nerve test due to tingling in arm that is annoying but functional. HEP: I have band and ROM exercises. R arm Pain Intensity (Out of 10): 0 % Improvement: 90 Objective/Function: Full aROM without pain, symmetrical in UE, strength 4- rotations and 4 in flexion/abduction, no pain. funcitonally moving well. overall much better and doing well, no further PT desired. Goal 1:: Pain in R UE 90% better adn 1/10 at worst. Goal Progress: Goal Met Goal 2:: I management of condition with ex, posture and activity mod Goal Progress: Goal Met Goal 3:: qucikdash score 16 or less Goal Progress: Progressing Goal 4:: Get dressed and do hair without modification Goal Progress: Goal Met Plan: d/c If there are questions or concerns regarding this patient's physical therapy, please feel free to call me at [phone]. Thank you for the referral of this patient. Sincerely, José Miguel Garcia, DPT, OCS, CSCS Balance/Gait/Functional tests - Balance/Special Test Scores Quick DASH Score: 15.9075
== END 2023-02-15 19:00 | disposition home or self-care (01) ==
LOC: PT 15:30
PROVIDERS: PCP Family Medicine; Referring Provider Orthopaedic Surgery; Visit Provider Orthopaedic Surgery
DX: M19.011 Primary osteoarthritis, right shoulder (principal); M50.30 Other cervical disc degeneration, unspecified cervical region
CPT/HCPCS: 97035; 97110; 97140; 97161; 97164

== ENCOUNTER → 2023-02-15 | Outpatient (CLI) | payer MEDICARE, SELFPAY ==
--- NOTE | 2023-02-15 12:17 | BI_ITS ---
MAMMOGRAPHY - BILATERAL SCREENING REASON FOR EXAM: Female, 77 years old. Routine annual screening examination. PERTINENT HISTORY: Personal history of breast cancer status post right lumpectomy in 2017 with chemoradiation therapy. TECHNIQUE: Digital bilateral breast venkatesh (3D mammographic acquisition) in the CC and MLO projections. 2-D mediolateral oblique (MLO) and craniocaudad (CC) views of both breasts were obtained. CAD: Full Field Digital Mammography with Computer Added Detection was performed. COMPARISON: Mammogram from 02/14/2022, 02/11/2021. FINDINGS: Breast Composition: There are scattered areas of fibroglandular density. There are no dominant masses or suspicious calcifications. Stable right breast lumpectomy scar and surgical clips. Stable scattered benign-appearing bilateral breast calcifications. No other significant abnormalities are identified. There has been no significant change since the prior study. BI/SCRN MAMM (CAD)W/VENKATESH BILAT IMPRESSION: Stable bilateral screening mammogram. Yearly follow-up mammogram recommended. (A) ASSESSMENT CATEGORY: BIRADS Category 2: Benign. A letter regarding these results will be sent to the patient by the facility within 30 days. Approximately 10% of breast cancers are not detected by mammography. A normal mammogram should not delay biopsy of a clinically suspicious abnormality. Electronically Signed: Dom Govea DO at 9:50 EDT ,
--- NOTE | 2023-02-15 12:20 | BD_ITS ---
STUDY: DUAL ENERGY X-RAY ABSORPTIOMETRY / DXA REASON FOR EXAM: Female, 77 years old. V76.12ScreeningBONE DENSITY REASON FOR EXAM TECHNIQUE: Bone Mineral Density (BMD) measurements of lumbar spine and bilateral hips were obtained. COMPARISON: Comparison is made with prior study dated April 10, 2019. FINDINGS: Lumbar Spine (L1-L4): g/cm2 (0.866) / T-score (-1.6) / Z-score (0.9) Findings are suggestive of osteopenia with a moderate fracture risk. Left Femur Total: g/cm2 (0.810) / T-score (-1.1) / Z-score (0.8) Left Femoral Neck: g/cm2 (0.639) / T-score (-1.9) / Z-score (0.3) Right Femur Total: g/cm2 (0.750) / T-score (-1.6) / Z-score (0.3) Right Femoral Neck: g/cm2 (0.637) / T-score (-1.9) / Z-score (0.3) The T-Scores on the most recent prior examination were: Lumbar Spine (L1-L4): There has been worsening of bone density since the previous examination. Left Femur Total: which represents a worsening of 4.7%. Right Femur Total: which represents a worsening of 8.4%. BD/Dexa Bone Density Study IMPRESSION: The patient is considered osteopenic as outlined below according to World Bill Organization (WHO) criteria with a moderate fracture risk. There has been worsening of bone density since the previous examination. Reference Information: The T-score is the number of standard deviations above or below the standard which is normal for young adults at their peak bone mineral density. The World Health Organization (WHO) interprets the T-scores as follows: Above -1 Normal bone density Between -1 and -2.5 Osteopenia Equal to / or below -2.5 Osteoporosis As a practical clinical guideline, osteopenia may be graded as follows: Mild -1 through -1.5 Moderate -1.6 through -2.0 Severe -2.1 through -2.4 The Z-score is the number of standard deviations above or below age-matched controls. A Z-score of less than -1.5 would be considered abnormal. References: 1. NIH Osteoporosis and Related Bone Diseases www osteo.org 2. International Society for Clinical Densitometry www iscd.org 3. National Osteoporosis Foundation www nof.org Electronically Signed: Sj Ramachandran MD at 15:31 EDT ,
== END | disposition home or self-care (01) ==
LOC: OPBD 12:16
PROVIDERS: PCP Family Medicine; Referring Provider Nurse Practitioner Family; Visit Provider Nurse Practitioner Family
DX: Z12.31 Encounter for screening mammogram for malignant neoplasm of breast (principal); Z85.3 Personal history of malignant neoplasm of breast; M85.80 Other specified disorders of bone density and structure, unspecified site; N95.9 Unspecified menopausal and perimenopausal disorder
CPT/HCPCS: 77063; 77067; 77080

== ENCOUNTER → 2023-12-31 | Outpatient (CLI) | payer MEDICARE, SELFPAY ==
--- NOTE | 2023-12-31 16:29 | RAD_ITS ---
STUDY: X-RAY - RIGHT KNEE REASON FOR EXAM: Female, 78 years old. fall TECHNIQUE: 3 view(s) of the knee. COMPARISON: None. FINDINGS: Normal visualized distal femur. Normal visualized proximal tibia and fibula. Normal proximal tibiofibular articulation. Narrowed medial femorotibial compartment. Normal lateral femorotibial compartment. Normal patellofemoral articulation. RAD/Knee 3 Views IMPRESSION: Mild degenerative changes. No acute fracture or dislocation Electronically Signed: Amadou Cohn MD at 17:00 EDT ,
--- NOTE | 2023-12-31 16:29 | RAD_ITS ---
STUDY: X-RAY - LEFT WRIST REASON FOR EXAM: Female, 78 years old. fall TECHNIQUE: 3 view(s) of the wrist were obtained. COMPARISON: None. FINDINGS: Normal visualized distal radius and ulna. Narrowed radiocarpal articulation. Normal distal radioulnar articulation. Normal carpal bones. Normal carpal articulations. Normal carpometacarpal articulation of the thumb. Normal second through fifth carpometacarpal articulations. Normal visualized metacarpal bones. The soft tissue structures are unremarkable. RAD/Wrist min 3 Views IMPRESSION: Degenerative changes. No acute fracture or dislocation Electronically Signed: Amadou Cohn MD at 16:55 EDT ,
--- NOTE | 2023-12-31 16:29 | RAD_ITS ---
STUDY: X-RAY - RIGHT WRIST REASON FOR EXAM: Female, 78 years old. fall TECHNIQUE: 3 view(s) of the wrist were obtained. COMPARISON: None. FINDINGS: Normal visualized distal radius and ulna. Mildly narrowed radiocarpal articulation. Normal distal radioulnar articulation. Normal carpal bones. Normal carpal articulations. Normal carpometacarpal articulation of the thumb. Normal second through fifth carpometacarpal articulations. Normal visualized metacarpal bones. The soft tissue structures are unremarkable. RAD/Wrist min 3 Views IMPRESSION: Degenerative changes. No acute fracture or dislocation. Electronically Signed: Amadou Cohn MD at 16:57 EDT ,
== END | disposition home or self-care (01) ==
LOC: MTRAD 16:28
PROVIDERS: PCP Family Medicine; Referring Provider Physician Assistant; Visit Provider Physician Assistant
DX: M19.90 Unspecified osteoarthritis, unspecified site (principal); W19.XXXA Unspecified fall, initial encounter
CPT/HCPCS: 73110; 73562

== ENCOUNTER → 2024-02-19 | Outpatient (CLI) | payer MEDICARE, SELFPAY ==
--- NOTE | 2024-02-19 09:34 | BI_ITS ---
MAMMOGRAPHY - BILATERAL SCREENING REASON FOR EXAM: Female, 78 years old. Routine annual screening examination. PERTINENT HISTORY: Personal history of breast cancer. Prior right lumpectomy with chemotherapy and radiation therapy. TECHNIQUE: Digital bilateral breast venkatesh (3D mammographic acquisition) in the CC and MLO projections. 2-D mediolateral oblique (MLO) and craniocaudad (CC) views of both breasts were obtained. CAD: Full Field Digital Mammography with Computer Added Detection was performed. COMPARISON: Comparison is made with prior study dated February 15, 2023 and February 14, 2022. FINDINGS: Breast Composition: There are scattered areas of fibroglandular density. There are no dominant masses or suspicious calcifications. The patient is status post right lumpectomy with postoperative scarring. Surgical clips are seen in the right axilla. No other significant abnormalities are identified. There has been no significant change since the prior study. BI/SCRN MAMM (CAD)W/VENKATESH BILAT IMPRESSION: Stable bilateral screening mammogram. Yearly follow-up mammogram recommended. (A) ASSESSMENT CATEGORY: BIRADS Category 2: Benign. A letter regarding these results will be sent to the patient by the facility within 30 days. Approximately 10% of breast cancers are not detected by mammography. A normal mammogram should not delay biopsy of a clinically suspicious abnormality. [id number] Electronically Signed: Sj Ramachandran MD at 11:00 EDT ,
== END | disposition home or self-care (01) ==
LOC: OPBI 09:33
PROVIDERS: PCP Family Medicine; Referring Provider Internal Medicine Medical Oncology; Visit Provider Internal Medicine Medical Oncology
DX: Z12.31 Encounter for screening mammogram for malignant neoplasm of breast (principal); Z85.3 Personal history of malignant neoplasm of breast; Z92.21 Personal history of antineoplastic chemotherapy; Z92.3 Personal history of irradiation
CPT/HCPCS: 77063; 77067

== ENCOUNTER → 2025-01-12 | Outpatient (CLI) | payer MEDICARE, SELFPAY ==
[2025-01-12 13:46] LABS: Cholesterol 175 mg/dL (<=200); High Density Lipoprotein 40 mg/dL; Low Density Lipoprotein Calc. 106 mg/dL; Triglycerides 144 mg/dL; Very Low Density Lipoprotein 29 mg/dL (5-40); cholesterol:hdl ratio screen 4.35
== END | disposition home or self-care (01) ==
LOC: MFPLAB 10:34
PROVIDERS: PCP Nurse Practitioner Family; Referring Provider Nurse Practitioner Family; Visit Provider Nurse Practitioner Family
DX: E78.5 Hyperlipidemia, unspecified (principal)
CPT/HCPCS: 36415; 80061

== ENCOUNTER → 2025-02-19 | Outpatient (CLI) | payer MEDICARE, SELFPAY ==
--- NOTE | 2025-02-19 10:00 | BI_ITS ---
EXAM: SCRN MAMM (CAD)W/VENKATESH BILAT DATE: 02/19/2025 CLINICAL HISTORY: F, Age 79 y/o , SCREENING Personal history of breast cancer. Prior right lumpectomy with chemotherapy and radiation therapy. TECHNIQUE: SCRN MAMM (CAD)W/VENKATESH BILAT COMPARISON: Prior exam(s) dated February 19, 2024. FINDINGS: TISSUE DENSITY: There are scattered areas of fibroglandular density. Bilateral Breast Mammographic Findings: No significant masses, calcifications or other abnormalities are identified. Once again, the patient is status post right lumpectomy with postoperative scarring. Surgical clips are seen in the right axilla Stable examination. BI/SCRN MAMM (CAD)W/VENKATESH BILAT IMPRESSION: Stable examination OVERALL FINAL ASSESSMENT BI-RADS 2: BENIGN RECOMMEND ANNUAL MAMMOGRAPHIC SCREENING. RECOMMENDATION: Routine annual follow-up in 1 Year A letter with findings and recommendations will be mailed to the patient. Reading Location: [facility]
== END | disposition home or self-care (01) ==
PROVIDERS: PCP Nurse Practitioner Family; Referring Provider Internal Medicine Medical Oncology; Visit Provider Internal Medicine Medical Oncology
DX: Z12.31 Encounter for screening mammogram for malignant neoplasm of breast (principal); Z85.3 Personal history of malignant neoplasm of breast
CPT/HCPCS: 77063; 77067